=== PATIENT | female | born 1980 | race Hispanic/Latino ===

== ENCOUNTER 2021-02-28 11:42 | Emergency (ER) | payer BC ==
--- OUTSIDE RECORDS SUMMARY | 2021-02-28 11:46 | XMS REPORT | Continuity of Care Document ---
:1980 Author Organization [facility] t Address [address] [place] [address] Care Team Providers Name Role Phone Doctor Unassigned, Name Attending Clinician Unavailable Julianna BRONSON Attending Clinician Problems Condition Condition Condition Status Onset Resolution Last Treating Co mments Source Name Details Category Date Date Treatment Clinician Date Lower Lower Diagnosis [facility] Maame Maame Problem [facility] Pelvic Pelvic Diagnosis [facility] History of History of Problem [facility] Allergies, Adverse Reactions, Alerts This patient has no known allergies or adverse reactions. Medications Ordered Filled Start Stop Current Ordering Indication Dosage Frequency Signature Comments Components Source Medication Medication Date Date Medication? Clinician (SIG) Name Name Advair HFA Advair HFA Yes Toney [address] [facility] Diflucan Diflucan Yes Toney [address] [facility] ProAir HFA ProAir HFA Yes Toney [address] [facility] Ambien Ambien Yes Toney not [facility] Prednisone Prednisone Yes Toney [address] [facility] MiraLax MiraLax Yes Toney not [facility] Procedures This patient has no known procedures. Encounters Start End Encounter Admission Attending Care Care Encounter Source Date/Time Date/Time Type Type Clinicians Facility Department ID 2019-06-07 Inpatient [facility] [address] [facility] H 08:34:00 2021-01-28 2021-01-28 Orders Doctor CORRIGAN [id number] 00:00:00 00:00:00 Only Unassigned, RADHA [id number] [place] [facility] [id number] 2020-11-07 2020-11-07 Orders Doctor CORRIGAN [id number] 00:00:00 00:00:00 Only Unassigned, RADHA [id number] [place] [facility] [id number] 2020-04-18 2020-04-18 Orders Doctor CORRIGAN [id number] 00:00:00 00:00:00 Only Unassigned, RADHA [id number] [place] [facility] [id number] 2020-04-03 2020-04-03 Telephone Julianna CTNETO [id number] 00:00:00 00:00:00 Adam Jimenez [id number] [place] [id number] Xim[place] [id number] [facility] 2018-09-22 2018-09-22 [facility] [id number] [facility] 10:30:00 10:30:00 t [facility] 2018-08-25 2018-08-25 [facility] [id number] 11:00:00 11:00:00 t [facility] Results Test Description Test Time Test Comments Results Result Sourc e Comments SCR MAMM 2019-01-04 - SCR MAMM BILATERAL BILATERAL SISSY 11:01:58 SISSY CAD CAD DIGITAL DIGITALBILATERAL FIRST EVER DIGITAL SCREENING MAMMOGRAM 3D/2D WITH CAD: 12/30/2018CLINICAL: Asymptomatic. Digital breast tomosynthesis was performed in addition to routine CC and MLO views. Current mammographic images were evaluated by either a [employer] Person M-Vu or a [employer] ImageChecker CAD (computer aided detection system). No prior exams were available for comparison. The tissue of both breasts is heterogeneously dense. This may lower the sensitivity of mammography. There is a focal asymmetry in the right breast at 12 o'clock, posterior depth. No other significant masses, calcifications, or other findings are seen in either breast. IMPRESSION: INCOMPLETE ASSESSMENT: ADDITIONAL IMAGING EVALUATION RECOMMENDEDThe focal asymmetry in the right breast most likely is fibroglandular tissue and is indeterminate. Spot compression view as well as a possible ultrasound are recommended. Larry Smith M.D. et/:01/04/2019 11:01:58 Attending Technologist: Angelina Renner MM, [facility] MammographyImaging Technologist: Livier Soria MM, [facility] Mammographyletter sent: Additional Imaging Mammogram BI-RADS: 0 Indeterminate
--- NOTE | 2021-02-28 13:28 | RAD REPORT ---
EXAM DESCRIPTION: RAD - Chest Pa And Lat (2 Views) - 02/28/2021 1:23 pm CLINICAL HISTORY: Chest pain;Dyspnea COMPARISON: Abdomen 1 View (KUB) dated 10/06/2017; Chest Single View dated 08/04/2016; Chest Single Vie w dated 07/25/2016; CHEST PA AND LAT 2 VIEW dated 07/21/2012 FINDINGS: Mild scattered air space opacities within the mid lungs and bases. The heart size is withi n normal limits.No acute osseous abnormality. No significant pleural effusions or pneumothorax. IMPRESSION: Mild mid lung and basilar opacities could reflect pneumonia. No edema identified.
[2021-02-28] MEDS ORDERED: NA CHLORIDE 0.9% 2,000 ML ONE (14:23)
[2021-02-28 14:41] LABS: Absolute Lymphocytes (CBC) 0.6 K/uL (0.7-4.9); Basophils % 0.1 % (0-1.3); Hematocrit 39.1 % (36.0-45.0); Lymphocytes % 8.4 % (15.3-44.8); MPV 8.1 fL (7.6-11.3); RBC Red Blood Cell Count 4.51 M/uL (3.86-4.86)
[2021-02-28 14:43] LABS: Protime INR 1.03
[2021-02-28 15:06] LABS: ALT/SGPT 99 U/L (12-78); AST/SGOT 66 U/L (15-37); Alkaline Phosphatase 119 U/L (45-117); BUN Blood Urea Nitrogen 14 mg/dL (7-18); Bicarbonate 23 mmol/L (21-32); Glucose Level 134 mg/dL (74-106); Potassium 3.9 mmol/L (3.5-5.1); Sodium Level 137 mmol/L (136-145)
[2021-02-28 15:07] LABS: Albumin 3.5 g/dL (3.4-5.0); Bilirubin Direct < 0.1 mg/dL (0-0.2); Bilirubin Total 0.3 mg/dL (0.2-1.0); Magnesium 2.1 mg/dL (1.8-2.4); NT PRO-BNP 86 pg/mL (<125); Protein, Total 7.7 g/dL (6.4-8.2); Troponin (Emerg Dept Use Only) < 0.02 ng/mL (0.0-0.045)
[2021-02-28] MEDS ORDERED: AZITHROMYCIN 250 MG TAB ONE (15:14)
[2021-02-28] MEDS ORDERED: ENOXAPARIN 80 MG/0.8 ML SQ ONE (15:14)
[2021-02-28] MEDS ORDERED: FAMOTIDINE 20 MG/2 ML VIAL IV ONE (15:14)
[2021-02-28] MEDS ORDERED: CEFTRIAXONE/SWI 1gm 1 GM/10 ML SYR ONE (15:15)
--- NOTE | 2021-02-28 15:41 | RAD REPORT ---
EXAM DESCRIPTION: CT - Chest For Pe Angio - 02/28/2021 3:23 pm CLINICAL HISTORY: Dyspnea;Cough COMPARISON: No comparisons FINDINGS: Chest Wall: No suspicious thyroid nodules or pathologic lymphadenopathy. Lungs: Moderate patchy ground-glass opacities in the lungs bilaterally. Pleura: No significant effusions or pneumothorax. Mediastinum/huong: No pathologic lymphadenopathy. Pulmonary arteries/Aorta: No filling defect identified. No aortic aneurysm. Heart: No significant pericardial effusion. Normal heart size. Upper abdomen: No acute abnormality. Small hiatal hernia. Partial gastrectomy. Bones: No acute abnormality. IMPRESSION: Negative for pulmonary embolism. Findings consistent with moderate multifocal pneumonia, including Covid-19.
--- NOTE | 2021-02-28 16:08 | ER ---
Nurse's Notes [facility] Name: Marija Rojas Age: 41 yrs Sex: Female : 1980 Arrival Date: 02/28/2021 Time: 12:00 Bed 19 Private MD: Diagnosis: Dyspnea;Mild intermittent asthma with (acute) exacerbation;Coronavirus infection, unspecified;Pneumonia due to SARS-associated coronavirus Presentation: 02/28 12:03 Chief complaint: Patient states: dyspnea, chest pain Hx asthma, fever Tmax 101, body sv aches x 9 days. COVID + 02/20/21. Coronavirus screen: Client denies travel out of the [place] in the last 14 days. At this time, the client does not indicate any symptoms associated with coronavirus-19. Ebola Screen: No symptoms or risks identified at this time. Risk Assessment: Do you want to hurt yourself or someone else? Patient reports no desire to harm self or others. Onset of symptoms was February 20, 2021. 12:03 Method Of Arrival: Ambulatory sv 12:05 Initial Sepsis Screen: Does the patient meet any 2 criteria? RR > 20 per min. HR > 90 sv bpm. Yes Does the patient have a suspected source of infection? Yes: Other: covid. 12:05 Acuity: MARTIN 3 sv 21:27 Note Pt was a/o vss in no acute distress at time of discharge. IV discontinued with tip sh9 intact. Pt ambulated to exit. Triage Assessment: 12:07 General: Appears in no apparent distress. uncomfortable, Behavior is calm, cooperative, sv appropriate for age. Pain: Complains of pain in chest. Neuro: Level of Consciousness is awake, alert, obeys commands, Gait is steady. Respiratory: Reports shortness of breath Respiratory effort is even, unlabored, Respiratory pattern is tachypnea Onset: The symptoms/episode began/occurred 9 days ago, the patient has mild shortness of breath. Historical: - Allergies: 12:05 adhesive tape; sv - Home Meds: 14:24 Ambien 10 mg Oral tab 1 tab once daily [Active]; proair inhaler [Active]; Miralax 17 ap3 gram/dose Oral powd once daily [Active]; Singulair Oral [Active]; - PMHx: 12:05 Asthma; sv - Immunization history:: Client reports having NOT received the Covid vaccine. - Social history:: Smoking status: Patient denies any tobacco usage or history of. Screenin:23 Abuse screen: Denies threats or abuse. Nutritional screening: No deficits noted. ap3 Tuberculosis screening: No symptoms or risk factors identified. Fall Risk None identified. Assessment: 12:06 Reassessment: Received VO for a CXR from Dr Moe. sv 14:22 General: Appears in no apparent distress. comfortable, Behavior is calm, cooperative, ap3 appropriate for age. General: Reports chills for fever for feeling ill for fatigue for. Pain: Complains of pain in head. Neuro: Level of Consciousness is awake, alert, obeys commands, Oriented to person, place, time, situation, Appropriate for age Shoe Sticks Repairer are equal bilaterally Moves all extremities. Gait is steady, Speech is normal. Cardiovascular: Rhythm is regular. Respiratory: Airway is patent Respiratory effort is even, unlabored, Respiratory pattern is regular, symmetrical, Breath sounds are clear in left posterior upper lobe and right posterior upper lobe Breath sounds are diminished in left posterior lower lobe, right posterior middle lobe and right posterior lower lobe. GI: No signs and/or symptoms were reported involving the gastrointestinal system. : No signs and/or symptoms were reported regarding the genitourinary system. EENT: No signs and/or symptoms were reported regarding the EENT system. 15:35 Reassessment: Patient and/or family updated on plan of care and expected duration. Pain ap3 level reassessed. Patient is alert, oriented x 3, equal unlabored respirations, skin warm/dry/pink. Vital Signs: 12:05 BP 116 / 82; Pulse 101; Resp 22; Temp 98.4(O); Pulse Ox 96% ; Weight 85.28 kg; Height 5 sv ft. 3 in. (160.02 cm); 14:25 BP 93 / 71; Pulse 74; Resp 12; Pulse Ox 99% on R/A; ap3 14:41 BP 101 / 81; Pulse 71; Resp 14; Pulse Ox 100% on R/A; ap3 15:35 BP 107 / 72; Pulse 71; Resp 14; Pulse Ox 100% on R/A; ap3 21:26 BP 123 / 82; Pulse 72; Resp 18; Pulse Ox 100% on R/A; sh9 12:05 Body Mass Index 33.30 (85.28 kg, 160.02 cm) sv ED Course: 12:00 Patient arrived in ED. am2 12:03 Arm band placed on. sv 12:06 Triage completed. sv 13:22 Chest Pa And Lat (2 Views) XRAY In Process Unspecified. EDMS 13:44 Sherri Leonard, PRIYA is Primary Nurse. ap3 13:46 Abraham Moe MD is Attending Physician. [facility] 14:15 Inserted saline lock: 20 gauge in right antecubital area, using aseptic technique. ap3 Blood collected. 14:23 Patient has correct armband on for positive identification. Bed in low position. Call ap3 light in reach. Side rails up X 1. vehicle monitor technician on. Pulse ox on. NIBP on. Door closed. Noise minimized. Warm blanket given. Pillow given. 15:24 CT Chest For PE Angio In Process Unspecified. EDMS 16:04 Ryan Rich is Hospitalizing Provider. [facility] 16:31 Admitting physician to see patient. ap3 21:31 IV discontinued, intact, bleeding controlled, No redness/swelling at site. Pressure sh9 dressing applied. 21:32 No provider procedures requiring assistance completed. sh9 Administered Medications: 14:21 Drug: NS 0.9% 500 ml Route: IV; Rate: bolus; Site: right antecubital; ap3 16:14 Follow up: Response: No adverse reaction; IV Status: Completed infusion; IV Intake: ap3 1000ml 14:21 Drug: NS 0.9% 1000 ml Route: IV; Rate: 125 ml/hr; Site: right antecubital; ap3 18:33 Follow up: Response: No adverse reaction; IV Status: Completed infusion; IV Intake: ap3 1000ml 15:01 Drug: Pepcid (famotidine) 20 mg Route: IVP; Site: right antecubital; ap3 16:13 Follow up: Response: No adverse reaction ap3 15:01 Not Given (pt already took this morningg): Zithromax (azithromycin) 500 mg PO once ap3 15:01 Drug: Rocephin (cefTRIAXone) 1 grams Route: IV; Rate: per protocol; Site: right ap3 antecubital; 16:13 Follow up: Response: No adverse reaction ap3 16:32 Follow up: Response: No adverse reaction; IV Status: Completed infusion ap3 15:03 Drug: Lovenox (enoxaparin) 1 mg/kg Route: Sub-Q; Site: abdomen; ap3 16:13 Follow up: Response: No adverse reaction ap3 16:12 Drug: Aspirin Chewable Tablet 162 mg Route: PO; ap3 18:33 Follow up: Response: No adverse reaction ap3 16:12 Drug: SOLU-Medrol (methylPrednisoLONE) 125 mg Route: IVP; Site: right antecubital; ap3 18:33 Follow up: Response: No adverse reaction ap3 16:13 Not Given (patient took this morningn): Zithromax (azithromycin) 500 mg IVPB once over ap3 1 hrs; mix in 250 mL NS Intake: 16:14 IV: 1000ml; Total: 1000ml. ap3 18:33 IV: 1000ml; Total: 2000ml. ap3 Outcome: 16:07 Decision to Hospitalize by Provider. [facility] 21:31 Discharged to home sh9 21:31 Condition: stable 21:31 Discharge instructions given to patient, Prescriptions given X 2. 21:32 Patient left the ED. sh9 Signatures: Dispatcher [employer] EDMS Ashleigh Tran RN RN Abraham Crane MD MD cha Moreno, Amanda am2 Sherri Leonard RN RN ap3 Irish Rod RN RN 9 Corrections: (The following items were deleted from the chart) 12:06 12:05 Temp 98.4F Oral; sv sv 12:07 12:05 Acuity: MARTIN 4 sv sv 15:03 15:01 Lovenox (enoxaparin) 1 mg/kg Sub-Q in abdomen ap3 ap3
--- NOTE | 2021-02-28 16:08 | EDPHYS ---
Physician Documentation [facility] [place] [place] Name: Marija Rojas Age: 41 yrs Sex: Female : 1980 Arrival Date: 02/28/2021 Time: 12:00 Bed 19 Private MD: ED Physician Abraham Moe HPI: 02/28 14:43 This 41 yrs old Female presents to ER via Ambulatory with complaints of vinod Breathing Difficulty, Fever, covid+. 14:43 The patient has shortness of breath at rest, with light activity. Onset: The vinod symptoms/episode began/occurred 10 day(s) ago. Duration: The symptoms are continuous, and are steadily getting worse. The patient's shortness of breath is aggravated by coughing. Associated signs and symptoms: Pertinent positives: chest pain, non-productive cough. Severity of symptoms: At their worst the symptoms were mild moderate in the emergency department the symptoms are unchanged. The patient has not experienced similar symptoms in the past. Historical: - Allergies: 12:05 adhesive tape; sv - Home Meds: 14:24 Ambien 10 mg Oral tab 1 tab once daily [Active]; proair inhaler [Active]; Miralax 17 ap3 gram/dose Oral powd once daily [Active]; Singulair Oral [Active]; - PMHx: 12:05 Asthma; sv - Immunization history:: Client reports having NOT received the Covid vaccine. - Social history:: Smoking status: Patient denies any tobacco usage or history of. ROS: 14:46 Constitutional: Negative for fever, chills, and weight loss, Eyes: Negative for injury, vinod pain, redness, and discharge, ENT: Negative for injury, pain, and discharge, Neck: Negative for injury, pain, and swelling, Abdomen/GI: Negative for abdominal pain, nausea, vomiting, diarrhea, and constipation, Back: Negative for injury and pain, : Negative for injury, bleeding, discharge, and swelling, MS/Extremity: Negative for injury and deformity, Skin: Negative for injury, rash, and discoloration, Neuro: Negative for headache, weakness, numbness, tingling, and seizure, Psych: Negative for depression, anxiety, suicide ideation, homicidal ideation, and hallucinations, Allergy/Immunology: Negative for hives, rash, and allergies, Endocrine: Negative for neck swelling, polydipsia, polyuria, polyphagia, and marked weight changes, Hematologic/Lymphatic: Negative for swollen nodes, abnormal bleeding, and unusual bruising. 14:46 Cardiovascular: Positive for chest pain, with movement. 14:46 Respiratory: Positive for cough, shortness of breath, at rest. Exam: 14:46 Constitutional: This is a well developed, well nourished patient who is awake, alert, vinod and in no acute distress. Head/Face: Normocephalic, atraumatic. Eyes: Pupils equal round and reactive to light, extra-ocular motions intact. Lids and lashes normal. Conjunctiva and sclera are non-icteric and not injected. Cornea within normal limits. Periorbital areas with no swelling, redness, or edema. ENT: Nares patent. No nasal discharge, no septal abnormalities noted. Tympanic membranes are normal and external auditory canals are clear. Oropharynx with no redness, swelling, or masses, exudates, or evidence of obstruction, uvula midline. Mucous membranes moist. Neck: Trachea midline, no thyromegaly or masses palpated, and no cervical lymphadenopathy. Supple, full range of motion without nuchal rigidity, or vertebral point tenderness. No Meningismus. Chest/axilla: Normal chest wall appearance and motion. Nontender with no deformity. No lesions are appreciated. Cardiovascular: Regular rate and rhythm with a normal S1 and S2. No gallops, murmurs, or rubs. Normal PMI, no JVD. No pulse deficits. Abdomen/GI: Soft, non-tender, with normal bowel sounds. No distension or tympany. No guarding or rebound. No evidence of tenderness throughout. Back: No spinal tenderness. No costovertebral tenderness. Full range of motion. Skin: Warm, dry with normal turgor. Normal color with no rashes, no lesions, and no evidence of cellulitis. MS/ Extremity: Pulses equal, no cyanosis. Neurovascular intact. Full, normal range of motion. Neuro: Awake and alert, GCS 15, oriented to person, place, time, and situation. Cranial nerves II-XII grossly intact. Motor strength 5/5 in all extremities. Sensory grossly intact. Cerebellar exam normal. Normal gait. Psych: Awake, alert, with orientation to person, place and time. Behavior, mood, and affect are within normal limits. 14:46 Respiratory: the patient does not display signs of respiratory distress, Respirations: normal, Breath sounds: rales, that are mild, are located in both bases, are heard in the left posterior upper lobe, right posterior upper lobe, left posterior lower lobe, right posterior middle lobe and right posterior lower lobe, decreased breath sounds, rhonchi, that are mild. 16:07 ECG was reviewed by the Attending Physician. [facility] Vital Signs: 12:05 BP 116 / 82; Pulse 101; Resp 22; Temp 98.4(O); Pulse Ox 96% ; Weight 85.28 kg; Height 5 sv ft. 3 in. (160.02 cm); 14:25 BP 93 / 71; Pulse 74; Resp 12; Pulse Ox 99% on R/A; ap3 14:41 BP 101 / 81; Pulse 71; Resp 14; Pulse Ox 100% on R/A; ap3 15:35 BP 107 / 72; Pulse 71; Resp 14; Pulse Ox 100% on R/A; ap3 21:26 BP 123 / 82; Pulse 72; Resp 18; Pulse Ox 100% on R/A; sh9 12:05 Body Mass Index 33.30 (85.28 kg, 160.02 cm) sv MDM: 13:46 Patient medically screened. vinod 14:46 Antibiotic administration: Rocephin and Zithromax given. HEART Score:. The patient was vinod given aspirin in the Emergency Department. The patient's Wells Deep Vein Thrombosis Score was calculated as follows: Total Score: 0. This patient was found to be at low risk for a deep vein thrombosis by using the Well's assessment criteria Total Score: 0-2 Pts- Low Risk. The patient's pulmonary embolism risk score was calculated as follows: Total Score: 0-2 points. This patient was found to be at low risk for a pulmonary embolism by using the Well's assessment criteria Total Score: 0-2 points. This patient was found to be at low risk for a pulmonary embolism by using the Well's assessment criteria. ZEE Risk Score: TOTAL SCORE = 0. Immunization status:. Data reviewed: vital signs, nurses notes, lab test result(s), EKG, radiologic studies, plain films. Data interpreted: child monitor: rate is 71 beats/min, rhythm is regular, Pulse oximetry: on room air. Test interpretation: by ED physician or midlevel provider: ECG, plain radiologic studies. 02/28 13:47 Order name: Basic Metabolic Panel; Complete Time: 15:59 vinod 02/28 13:47 Order name: CBC with Diff [facility] 02/28 13:47 Order name: LFT's; Complete Time: 15:59 vinod 02/28 13:47 Order name: Magnesium; Complete Time: 15:59 vinod 02/28 13:47 Order name: NT PRO-BNP; Complete Time: 15:59 vinod 02/28 13:47 Order name: PT-INR; Complete Time: 15:59 vinod 02/28 12:06 Order name: Chest Pa And Lat (2 Views) XRAY; Complete Time: 15:59 sv 02/28 13:47 Order name: Troponin (emerg Dept Use Only); Complete Time: 15:59 vinod 02/28 13:47 Order name: D-Dimer; Complete Time: 15:59 vinod 02/28 14:43 Order name: Blood Culture Adult (2) vinod 02/28 14:43 Order name: CT Chest For PE Angio; Complete Time: 15:59 [facility] 02/28 18:46 Order name: CBC Smear Scan EDMS 02/28 13:47 Order name: EKG; Complete Time: 13:48 [facility] 02/28 13:47 Order name: Cardiac monitoring; Complete Time: 14:21 [facility] 02/28 13:47 Order name: EKG - Nurse/Tech; Complete Time: 16:00 [facility] 02/28 13:47 Order name: IV Saline Lock; Complete Time: 14:21 [facility] 02/28 13:47 Order name: Labs collected and sent; Complete Time: 14:21 [facility] 02/28 13:47 Order name: O2 Per Protocol; Complete Time: 14:21 [facility] 02/28 13:47 Order name: O2 Sat Monitoring; Complete Time: 14:21 [facility] EC:07 Rate is 70 beats/min. Rhythm is regular. QRS [place] is Normal. NE interval is normal. QRS vinod interval is normal. QT interval is prolonged at 446 msec. No Q waves. T waves are Normal. No ST changes noted. Clinical impression: NSR w/ Non-specific ST/T Changes and No evidence of ischemia. Interpreted by me. Reviewed by me. Administered Medications: 14:21 Drug: NS 0.9% 500 ml Route: IV; Rate: bolus; Site: right antecubital; ap3 16:14 Follow up: Response: No adverse reaction; IV Status: Completed infusion; IV Intake: ap3 1000ml 14:21 Drug: NS 0.9% 1000 ml Route: IV; Rate: 125 ml/hr; Site: right antecubital; ap3 18:33 Follow up: Response: No adverse reaction; IV Status: Completed infusion; IV Intake: ap3 1000ml 15:01 Drug: Pepcid (famotidine) 20 mg Route: IVP; Site: right antecubital; ap3 16:13 Follow up: Response: No adverse reaction ap3 15:01 Not Given (pt already took this morningg): Zithromax (azithromycin) 500 mg PO once ap3 15:01 Drug: Rocephin (cefTRIAXone) 1 grams Route: IV; Rate: per protocol; Site: right ap3 antecubital; 16:13 Follow up: Response: No adverse reaction ap3 16:32 Follow up: Response: No adverse reaction; IV Status: Completed infusion ap3 15:03 Drug: Lovenox (enoxaparin) 1 mg/kg Route: Sub-Q; Site: abdomen; ap3 16:13 Follow up: Response: No adverse reaction ap3 16:12 Drug: Aspirin Chewable Tablet 162 mg Route: PO; ap3 18:33 Follow up: Response: No adverse reaction ap3 16:12 Drug: SOLU-Medrol (methylPrednisoLONE) 125 mg Route: IVP; Site: right antecubital; ap3 18:33 Follow up: Response: No adverse reaction ap3 16:13 Not Given (patient took this morningn): Zithromax (azithromycin) 500 mg IVPB once over ap3 1 hrs; mix in 250 mL NS Disposition Summary: 02/28/21 16:07 Hospitalization Ordered Hospitalization Status: Inpatient Admission vinod Provider: Ryan Rich cha Condition: Fair vinod Problem: new vinod Symptoms: have improved vinod Bed/Room Type: Standard vinod Location: [facility] ER HOLD(02/28/21 21:05) bb Room Assignment: ERHOLD-(02/28/21 21:05) bb Diagnosis - Dyspnea vinod - Mild intermittent asthma with (acute) exacerbation vinod - Coronavirus infection, unspecified vinod - Pneumonia due to SARS-associated coronavirus vinod Forms: - Medication Reconciliation Form vinod - SBAR form vinod Signatures: Dispatcher [employer] EDAshleigh Delgadillo RN Abraham Jerome MD MD cha Ballard, Brenda, RN RN bb Sherri Leonard RN RN ap3 Corrections: (The following items were deleted from the chart) 16: Telemetry/MedSurg (Inpatient) vinod mahoney 16: vinod mahoney
[2021-02-28] MEDS ORDERED: ASPIRIN EC 81 MG TAB PO ONE (16:33)
[2021-02-28] MEDS ORDERED: METHYLPREDNISOLONE 125 MG INJ ONE (16:33)
[2021-02-28 18:46] LABS: Blood Morphology Comment NOT SEEN (NOT SEEN); Platelet Estimate ADEQ; White Blood Cell Scan OK (OK)
--- NOTE | 2021-02-28 19:10 | P.SSS ---
Patient History Date of Service: 02/28/21 Reason for admission: COVID-19 pneumonia History of Present Illness: Patient is a 41-year-old female came to the hospital with shortness of breath. She has been dealing with a COVID-19 infection since her [birth year] on [birth year]. She has been short of breath over the last few days. She has a history of asthma. Her clinical symptoms are fairly stable. She satting 100% on room air. Her chest x-ray showed mild interstitial infiltrates. CT scan was negative for pulmonary embolism. Did show the mild infiltrates. Her oxygen saturations are 100% on room air. She had some diarrhea the last couple of days but she has not had any diarrhea today. She did not eat much since last night. 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 She got Solu-Medrol 125 mg IV push. Clinically she is stable and safe for discharge. I have advised her to take and anti coagulation which all prescribed at discharge for the next 2 weeks. Allergies adhesive tape Allergy (Verified 04/27/17 08:16) Hives Home Medications: Albuterol Sulfate [Proair Hfa] 8.5 gm IH PRN PRN 04/27/17 Diclofenac Na [Voltaren D.r*] 50 mg PO TID PRN #20 tab 04/27/17 Fluticasone/Salmeterol [Advair 250-50 Diskus] 1 each IH DAILY 04/27/17 Iron Carb,Gl/FA/B12/C/Docusate [Ferralet 90 Tablet] 1 each PO DAILY #90 tablet 04/27/17 Montelukast [Singulair] 10 mg PO DAILY 04/27/17 Norgestimate-Ethinyl Estradiol [Estarylla] 1 each PO DAILY 04/27/17 Zolpidem Tartrate [Ambien] 10 mg PO BEDTIME 04/27/17 - Past Medical/Surgical History -: Asthma -: Anxiety -: section x3 (and tubal ligation) -: Bariatric surgery 2013 - Family History Father Notes: Noncontributory - Social History Smoking Status: Never smoker Alcohol use: No CD- Drugs: No Caffeine use: Yes Review of Systems 10-point ROS is otherwise unremarkable Physical Examination - Vital Signs Temperature: 98 F Blood Pressure: 130/70 Pulse: 80 Respirations: 18 Pulse Ox (%): 96 - Physical Exam General: Alert, In no apparent distress, Oriented x3 HEENT: Atraumatic, PERRLA, Mucous membr. moist/pink, EOMI, Sclerae nonicteric Neck: Supple, 2+ carotid pulse no bruit, No LAD, Without JVD or thyroid abnormality Respiratory: Clear to auscultation bilaterally, Normal air movement Cardiovascular: Regular rate/rhythm, Normal S1 S2, No murmurs Gastrointestinal: Normal bowel sounds, Soft and benign, Non-distended, No tenderness Musculoskeletal: No clubbing, No swelling, No tenderness Integumentary: No rashes Neurological: Normal gait, Normal speech, Normal strength at 5/5 x4 extr, Normal tone, Sensation intact, Cranial nerves 3-12 intact, Normal affect Lymphatics: No axilla or inguinal lymphadenopathy - Studies Laboratory Data (last 24 hrs) 02/28/21 14:11: PT 11.8, INR 1.03 02/28/21 14:11: WBC 7.40, Hgb 13.0, Hct 39.1, Plt Count 245 02/28/21 14:11: Sodium 137, Potassium 3.9, BUN 14, Creatinine 0.59, Glucose 134 H, Magnesium 2.1, Total Bilirubin 0.3, AST 66 H, ALT 99 H, Alkaline Phosphatase 119 H - Diagnosis (Problem(s)) (1) Pneumonia due to COVID-19 virus Current Visit: Yes Status: Acute Treatment Summary: Patient is clinically doing well and is stable for discharge. She does not need home oxygen. Will discharge her on steroids. She does have all her asthma medications including nebulizers and inhaler therapy which I have encouraged her to use. I will send her home with item tapering dose of prednisone as well as cough medication and anti coagulation. - Disposition Discharge Date: 02/28/21 Disposition: ROUTINE DISCHARGE Followup: OOTOOT [Primary Care Provider] - Prvt As Needed Diet: AHA Activity: Fall precautions Critical Care: No Time Spent Managing Pts Care (In Minutes): 45
[2021-02-28 19:11] VITALS: TEMP 98
[2021-02-28 21:58] VITALS: O2SAT 100
[2021-02-28 22:02] VITALS: BP 123/82
== END 2021-02-28 21:29 | disposition home or self-care (01) ==
LOC: ER 11:42 → ERHOLD 20:57 → UNDOADMIN 20:57 → UNDODISIN 21:29 → ER 21:29
DX: U07.1 COVID-19 (principal); J12.82 Pneumonia due to coronavirus disease 2019; J45.21 Mild intermittent asthma with (acute) exacerbation; F41.9 Anxiety disorder, unspecified; Z91.048 Other nonmedicinal substance allergy status
CPT/HCPCS: 96365; 96361; 93005; 87040 ×2; 85025; 80048; 36415; 83735; 85610; 85379; 80076; 84484; 83880; 71275; 71046; 96375; 96372; 99284; 96366; Q9967; J0696; J7030; J2930

== ENCOUNTER 2021-10-10 06:36 | Day surgery (SDC) | payer BC, OTHER ==
[2021-10-08 10:40] LABS: Absolute Lymphocytes (CBC) 3.4 K/uL (0.7-4.9); Hematocrit 40.5 % (36.0-45.0); Lymphocytes % 33.8 % (15.3-44.8); MPV 7.3 fL (7.6-11.3); RBC Red Blood Cell Count 4.63 M/uL (3.86-4.86)
[2021-10-08 10:47] LABS: Urine Appearance CLEAR (Clear); Urine Bilirubin NEGATIVE (Negative); Urine Blood NEGATIVE (Negative); Urine Color YELLOW (Yellow); Urine Glucose NEGATIVE (Negative); Urine Microscopic Reflex NO UMIC; Urine Protein NEGATIVE (Negative); Urine Urobilinogen 0.2 mg/dL (0.2-1.0); Urine pH 7.5 (5.0-7.0)
[2021-10-10] MEDS ORDERED: SCOPOLAMINE HYDROBROMIDE PATCH TD ONE (06:51)
[2021-10-10] MEDS ORDERED: Ringers Lactate 1,000 ML IV ONE ×2 (06:51→07:20)
[2021-10-10] MEDS ORDERED: LIDOCAINE 2% MPF 5 ML VIAL ONE (07:04)
[2021-10-10] MEDS ORDERED: KETAMINE HCL 500 MG/5 ML VIAL ONE (07:04)
[2021-10-10] MEDS ORDERED: propofoL 200 MG/20 ML VIAL IV ONE (07:04)
[2021-10-10] MEDS ORDERED: dexAMETHasone 10 MG/ML VIAL ONE (07:04)
[2021-10-10] MEDS ORDERED: ROCURONIUM 50 MG/5 ML VIAL IV ONE (07:04)
[2021-10-10] MEDS ORDERED: FENTANYL CITR 250 MCG/5 ML ONE (07:05)
[2021-10-10] MEDS ORDERED: ONDANSETRON 4 MG/2 ML VIAL ONE ×2 (07:05→12:37)
[2021-10-10] MEDS ORDERED: NS 0.9% VIAL 10 ML ONE (07:05)
[2021-10-10] MEDS ORDERED: MIDAZOLAM HCL 2 MG/2 ML INJ ONE (07:05)
[2021-10-10] MEDS ORDERED: CEFAZOLIN SODIUM 1 GM/VIAL ONE (07:08)
[2021-10-10] MEDS ORDERED: NA CHLORIDE 0.9% 50 ML ONE (07:08)
[2021-10-10] MEDS ORDERED: ACETAMINOPHEN 500 MG TAB ONE (07:18)
[2021-10-10] MEDS ORDERED: CELECOXIB 100 MG CAPSULE ONE (07:18)
[2021-10-10] MEDS ORDERED: NA CHLORIDE 0.9% 1,000 ML ONE (07:19)
[2021-10-10] MEDS ORDERED: BUPIVACAINE 0.25% PF 10 ML VIAL ONE (07:19)
[2021-10-10] MEDS ORDERED: Phenylephrine HCl 10 MG/ML 1 ML VIAL ONE (08:00)
[2021-10-10] MEDS: CEFAZOLIN/SWI 2gm 2 GM/20 ML SYR ONE ×2 (08:10→09:34)
[2021-10-10] MEDS ORDERED: VECURONIUM 10 MG/VIAL IV ONE (08:38)
[2021-10-10] MEDS ORDERED: IBUPROFEN 200 MG TAB PO PRN (10:29)
[2021-10-10] MEDS ORDERED: HYDROCODONE/APAP 5/325 MG TAB PO PRN (10:29)
[2021-10-10] MEDS ORDERED: PROMETHAZINE INJ 25 MG/ML AMP IV PRN (10:29)
[2021-10-10] MEDS ORDERED: MEPERIDINE HCL 25 MG/ML SYR IM PRN (10:29)
--- NOTE | 2021-10-10 10:32 | P.BOP ---
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
[2021-10-10] MEDS: HYDROMORPHONE HCL 1 MG/ML INJ ONE ×6 (10:49→11:16)
[2021-10-10] MEDS ORDERED: KETOROLAC 30 MG/ML INJ ONE (11:21)
[2021-10-10] MEDS ORDERED: HYDROCODONE/APAP 5/325 MG TAB ONE (12:55)
[2021-10-10 13:57] VITALS: BP 131/82; TEMP 97.3; O2SAT 96
--- NOTE | 2021-10-16 12:38 | OP ---
Date of Procedure: 10/10/2021 Surgeon: Arabella Mcfadden MD Quarter Supervisor: Shikha Real. Preoperative Diagnosis: Pelvic pain, deep dyspareunia, x3. Postoperative Diagnosis: Pelvic pain, deep dyspareunia, x3. Endometriosis and adhesions of the omentum and the bladder. Procedures Performed: Total laparoscopic hysterectomy and bilateral salpingectomy, endometriosis exc ision, lysis of adhesion. Anesthesia: General endotracheal. Ebl: 50. Urine Output: 100. Fluids: 1500. Specimens: Uterus and tubes. Endometriosis included with the ligament and the peritoneum of the romain rine specimen. Complications: No complications. Drains: No drains. Condition: The patient's condition is stable. Findings: Endometriosis along the tubes, right mesosalpinx, omental adhesions to the anterior abdomi nal wall. Indications: The patient is a 41-year-old female who presented with pelvic pain and dyspareunia. Sh salinas has history of three sections. Through the transvaginal ultrasound, no pelvic masses were noted and she was evaluated. In her endometrium, no evidence of any atypia or malignancy. We discu ssed all different options of treatment and she was consented for surgical treatment with preservatio n of ovaries, removal of endometriosis if found and possible resolution of her pain with the hysterec alise. There is also a chance of 1/3rd of the time that the pain either would not change or a very sm all percentage of time that it could get worse. The patient was informed all about this and consente d and taken to the OR. 2 g of Ancef was given. SCDs were placed and she was taken back to OR, place d in a supine fashion on the operating table. After general anesthesia was given, placed in a dorsal lithotomy position. A pelvic exam was performed. Then abdomen, vulva, vagina, and perineum prepped and draped in a steri le fashion. After a time-out was done, the procedure was started. Speculum was placed to expose the cervix. Anterior lip grasped with 2 Allis clamps. A large VCare i ntroduced into the uterus without any problems. Barrow placed to drain the bladder and attached for r etrograde filling. This area was draped. 1 cm infraumbilical incision was made with a scalpel using the open laparoscopy technique. Fascia wa s incised, tagged with 0 Vicryl sutures and peritoneum entered bluntly. The S retractors were placed . Marcella introduced. After adequate insufflation, site of entry was checked, unremarkable. The pat ient was placed in Trendelenburg. The adhesions of the omentum all the way to the bladder were visua lized. A 5 mm left lower quadrant port was placed and then using the LigaSure, omental adhesions wer e taken down systematically with sharp dissection as well as vessel sealing with the LigaSure. After clearing the omental adhesions all the way down to the level of the bladder, the bladder cleare d down all the way to the level of the suprapubic area. Then, there was good visualization. Then, s uprapubic and 5 right lower quadrant ports were placed under direct vision. The bowel was tacked up with the epiploicae in the left upper quadrant using a Shree-Malachi needle and a 3-0 Monocryl sutu re. Endometriosis of the right mesosalpinx was well visualized. There was a wide excision of this endome triosis and the fimbriated end was taken down from the ovary and then the rest of the tube was dissec demetrice and removed and handed out for permanent pathology. Utero-ovarian ligament, round ligament were all taken down. Peritoneum anteriorly was connected with the bladder flap and then from the left debbie e, the tube was removed. Utero-ovarian ligament and the round ligament were taken down and the bladd er flap connected anteriorly and the vessels were skeletonized on both sides right and lef t then circumferential colpotomy was performed with a monopolar hook blade and the specime n pulled out through the vagina. 0 Vicryl sutures were placed as the angles one on each side and then 2-0 V-Loc was used to close the fascial incision in 2 layers. Vaginal epithelium connective tissue taken on the first lay er. Then, the on the second layer. No evidence of any trauma to the bladder or the urete rs. After the surgery was completed, trocars were removed. The ovaries were intact. No problems. Gas was desufflated. After the patient was recovered from anesthesia, Barrow was removed as well as t he occluder sponge. Then, the case was ended. EBL was minimal. She will follow up in 1 week. DORIS/LALA Voice ID: [id number] Report ID: [id number]
== END 2021-10-10 13:50 | disposition home or self-care (01) ==
LOC: OR 06:36
PROVIDERS: ATTEND Obstetrics & Gynecology
PROC: 0UT74ZZ Resection of Bilateral Fallopian Tubes, Percutaneous Endoscopic Approach (ICD-10-PCS; 2021-10-10)
PROC: 0UT94ZZ Resection of Uterus, Percutaneous Endoscopic Approach (ICD-10-PCS; principal; 2021-10-10 07:30)
DX: N94.12 Deep dyspareunia (principal); N94.6 Dysmenorrhea, unspecified; R10.2 Pelvic and perineal pain; F33.0 Major depressive disorder, recurrent, mild; R00.0 Tachycardia, unspecified; N80.2 Endometriosis of fallopian tube; Z20.822 Contact with and (suspected) exposure to COVID-19
CPT/HCPCS: 85025; 36415 ×2; 86900; 86850; 84703; 86901; 88307; 81003; 58571; U0003; J2704; J2250; J3010; J1100; J1170 ×3; J0690 ×2; J7120 ×2; J7030; J2405 ×2; J2370

== ENCOUNTER 2021-10-17 12:35 | Emergency (ER) | payer OTHER ==
--- OUTSIDE RECORDS SUMMARY | 2021-10-17 12:39 | XMS REPORT | Continuity of Care Document ---
:1980 Author Organization [facility] t Address [address] [place] [address] Care Team Providers Name Role Phone Nigel GALLARDO Primary Care Physician Tomeka Attending Clinician Unavailable Julianna BRONSON Attending Clinician Doctor Unassigned, Name Attending Clinician Unavailable Payers Payer Name Policy Type Policy Number Effective Date Expiration Date S ource Problems Condition Condition Condition Status Onset Resolution Last Treating Co mments Source Name Details Category Date Date Treatment Clinician Date No known No known Disease Unive rs active active ity of problems problems [facility] Allergies, Adverse Reactions, Alerts This patient has no known allergies or adverse reactions. Social History Social Habit Start Date Stop Date Quantity Comments Source Exposure to Not sure [facility] SARS-CoV-2 (event) [facility] History of tobacco Cigarette Smoker University of use [facility] Cigarettes smoked 2018-10-11 2018-10-11 Univers ity of current (pack per 00:00:00 00:00:00 [place] ) - Reported Branch Cigarette 2018-10-11 2018-10-11 University of pack-years 00:00:00 00:00:00 [facility] Tobacco use and 2018-10-11 2018-10-11 Never used Universit y of exposure 00:00:00 00:00:00 [facility] Sex Ass[birth year] At [birth year] Universit y of 00:00:00 00:00:00 [facility] Smoking Status Start Date Stop Date Source Current every day smoker 2018-10-11 00:00:00 [facility] Medications Ordered Filled Start Stop Current Ordering Indication Dosage Frequency Signature Comments Components Source Medication Medication Date Date Medication? Clinician (SIG) Name Name predniSONE 2020-07- No [id number] 40mg Take 2 Univers 20 mg 2-13 12-19 tablets by ity of tablet 00:00: 05:59 mouth [place] 00 :00 daily for Medical 5 days. Branch fluticasone 2020-07 Yes 2{puff} Inhale 2 Univers -salmeterol 2-09 Puffs 2 ity o f 230-21 11:49: (two) [place] mcg/actuati 36 times Medical on inhaler daily. Branch fluticasone 2020-07 Yes 2{puff} Inhale 2 Univers -salmeterol 2-09 Puffs 2 ity o f 230-21 11:49: (two) [place] mcg/actuati 36 times Medical on inhaler daily. [place] fluticasone 2020-07 Yes 2{puff} Inhale 2 Univers -salmeterol 2-09 Puffs 2 ity o f 230-21 11:49: (two) [place] mcg/actuati 36 times Medical on inhaler daily. [place] albuterol Yes [id number] 2{puff} Inhale 2 Univers (PROAIR 9-16 Puffs ity of HFA) 90 00:00: every 6 [place] mcg/actuati 00 (six) Medical on inhaler hours as Branc h needed for Wheezing or Shortness of Breath. predniSONE Yes [id number] 40mg Take 2 Univers 20 mg 9-16 [id number] tablets by ity o f tablet 00:00: mouth [place] 00 daily. Medical Branch albuterol Yes [id number] 2{puff} Inhale 2 Univers (PROAIR 9-16 Puffs ity of HFA) 90 00:00: every 6 [place] mcg/actuati 00 (six) Medical on inhaler hours as Branc h needed for Wheezing or Shortness of Breath. predniSONE Yes [id number] 40mg Take 2 Univers 20 mg 9-16 [id number] tablets by ity o f tablet 00:00: mouth [place] 00 daily. Medical Branch albuterol Yes [id number] 2{puff} Inhale 2 Univers (PROAIR 9-16 Puffs ity of HFA) 90 00:00: every 6 [place] mcg/actuati 00 (six) Medical on inhaler hours as Branc h needed for Wheezing or Shortness of Breath. predniSONE Yes [id number] 40mg Take 2 Univers 20 mg 9-16 [id number] tablets by ity o f tablet 00:00: mouth [place] [address] daily. Medical Branch MONTELUKAST 2019-0 Yes [id number] TAKE 1 Univers 10 mg 9-28 TABLET AT ity of tablet 00:00: BEDTIME [place] [facility] MONTELUKAST 2019-0 Yes [id number] TAKE 1 Univers 10 mg 9-28 TABLET AT ity of tablet 00:00: BEDTIME [place] [facility] MONTELUKAST 2019-0 Yes [id number] TAKE 1 Univers 10 mg 9-28 TABLET AT ity of tablet 00:00: BEDTIME [place] [address] Medical Branch levalbutero 2018-07 Yes [id number] 1.25mg Inhale Univers l 1.25 mg/3 1-15 1.25 mg 3 ity of mL 00:00: (three) [place] nebulizer 00 times Medical solution daily as Branch needed for Wheezing or Shortness of Breath. levalbutero 2018-07 Yes [id number] 1.25mg Inhale Univers l 1.25 mg/3 1-15 1.25 mg 3 ity of mL 00:00: (three) [place] nebulizer 00 times Medical solution daily as Branch needed for Wheezing or Shortness of Breath. levalbutero 2018-07 Yes [id number] 1.25mg Inhale Univers l 1.25 mg/3 1-15 1.25 mg 3 ity of mL 00:00: (three) [place] nebulizer 00 times Medical solution daily as Branch needed for Wheezing or Shortness of Breath. dupilumab 2019-0 Yes Day 15 and Un isaías 200 mg/1.14 5-30 on inject ity of mL Syrg 00:00: 200 mg [place] syringe 00 under skin Medica l every 2 Branch weeks. dupilumab 2019-0 Yes Day 15 and Un isaías 200 mg/1.14 5-30 on inject ity of mL Syrg 00:00: 200 mg [place] syringe 00 under skin Medica l every 2 Branch weeks. dupilumab 2019-0 Yes Day 15 and Un isaías 200 mg/1.14 5-30 on inject ity of mL Syrg 00:00: 200 mg [place] syringe 00 under skin Medica l every 2 Branch weeks. tiotropium Yes [id number] 1{puff} Inhale 1 Univers bromide 5-03 Puff ity of (SPIRIVA 00:00: daily. [place] RESPIMAT) 00 Medical 2.5 Branch mcg/actuati on Mist tiotropium Yes [id number] 1{puff} Inhale 1 Univers bromide 5-03 Puff ity of (SPIRIVA 00:00: daily. [place] RESPIMAT) 00 Medical 2.5 Branch mcg/actuati on Mist tiotropium Yes [id number] 1{puff} Inhale 1 Univers bromide 5-03 Puff ity of (SPIRIVA 00:00: daily. [place] RESPIMAT) 00 Medical 2.5 Branch mcg/actuati on Mist zolpidem 10 Yes TK 1 T PO U nivers mg tablet 3-29 QD HS. ity of 00:00: [place] [facility] zolpidem 10 Yes TK 1 T PO U nivers mg tablet 3-29 QD HS. ity of 00:00: [place] [facility] zolpidem 10 Yes TK 1 T PO U nivers mg tablet 3-29 QD HS. ity of 00:00: [place] [facility] Prednisone Prednisone Yes Toney [address] [facility] MiraLax MiraLax Yes Toney not [facility] Advair HFA Advair HFA Yes Toney [address] [facility] Diflucan Diflucan Yes Toney [address] [facility] ProAir HFA ProAir HFA Yes Toney [address] [facility] Ambien Ambien Yes Toney not [facility] Vital Signs Vital Name Observation Time Observation Value Comments Source Systolic blood 2021-06-13 17:48:00 123 mm[Hg] Univer sity of pressure [facility] Diastolic blood 2021-06-13 17:48:00 84 mm[Hg] Unive rsity of pressure [facility] Heart rate 2021-06-13 17:48:00 101 /min [facility] Respiratory rate 2021-06-13 17:48:00 20 /min Univ ersity of [facility] Body height 2021-06-13 17:48:00 162.6 cm Universi [facility] Body weight 2021-06-13 17:48:00 96.163 kg Universi [facility] BMI 2021-06-13 17:48:00 36.39 kg/m2 [facility] Oxygen saturation in 2021-06-13 17:48:00 98 /min [facility] Arterial blood by [facility] Pulse oximetry Branch Procedures Procedure Date / Time Performing Clinician Source Performed MEDICATION CORRESPONDENCE 2021-05-07 05:01:00 Doctor Unassigned, [facility] Encounters Start End Encounter Admission Attending Care Care Encounter Source Date/Time Date/Time Type Type Clinicians Facility Department ID 2021-09-24 Outpatient Tomeka, STLMLC STLMLC [id number] [facility] 14:46:00 Berna [id number] [facility] 2021-07-31 Outpatient [place], STLMLC STLMLC [id number] [facility] 12:49:26 Berna 237[address] [facility] 2019-06-07 Inpatient [facility] BENY [id number] [facility] 08:34:00 2021-09-30 2021-09-30 ambulatory STLMLC [facility]LMLC [id number] [facility] 2021-06-14 2021-06-14 Telephone VANE Levine [id number] Univers 00:00:00 00:00:00 Adam GALLO [id number] i ty ap[facility] [id number] Michi CHANEL [phone] Nd dical [facility]5 [facility] 2021-06-13 2021-06-13 Office VANE Levine [id number] Univers 12:02:06 12:32:06 Visit Adam GALLO [id number] i ty of [id number] PROF[place] [phone] Nd dical [address] 2021-05-07 2021-05-07 Orders Doctor SHEKHAR [id number] Univers 00:00:00 00:00:00 Only Unassigned, RADHA [id number] ity of [facility] [id number] Lonnie as [phone] [address] 2021-01-28 2021-01-28 Orders Doctor SHEKHAR [id number] 00:00:00 00:00:00 Only Unassigned, RADHA [id number] [facility] [id number] [phone] [facility] 2020-11-07 2020-11-07 Orders Doctor CORRIGAN [id number] 00:00:00 00:00:00 Only Unassigned, RADHA [id number] [facility] [id number] 2020-04-18 2020-04-18 Orders Doctor CORRIGAN [id number] 00:00:00 00:00:00 Only Unassigned, RADHA [id number] [facility] [phone] [facility] 2020-04-03 2020-04-03 Telephone Julianna [facility] [id number] 00:00:00 00:00:00 Drewdarrick Gallo [id number] [employer] [id number] Professio [phone] nal [address] [place] [address] 2018-09-22 2018-09-22 [facility] [id number] [address] 10:30:00 10:30:00 t [facility] 2018-08-25 2018-08-25 [facility] [id number] 11:00:00 11:00:00 [facility] 2014-01-05 2014-01-06 Outpt Diag nullFlavo [facility] [id number] [facility] 12:20:00 04:59:00 Services r Outpatient 00 l Imaging Warren Kelley Results Test Description Test Time Test Comments Results Result Sourc e Comments SCR MAMM 2019-01-04 - SCR MAMM BILATERAL BILATERAL SISSY 11:01:58 SISSY CAD CAD DIGITAL DIGITALBILATERAL FIRST EVER DIGITAL SCREENING MAMMOGRAM 3D/2D WITH CAD: 12/30/2018CLINICAL: Asymptomatic. Digital breast tomosynthesis was performed in addition to routine CC and MLO views. Current mammographic images were evaluated by either a [employer] M-Vu or a [employer] CAD (computer aided detection system). No prior [...] 11:01:58 Attending Technologist: Angelina Renner MM, [employer] [facility] [employer] Technologist: Livier Soria MM, [employer] [facility] Mammographyletter sent: Additional Imaging Mammogram BI-RADS: 0 Indeterminate
[2021-10-17] MEDS ORDERED: NA CHLORIDE 0.9% 1,000 ML ONE (13:39)
[2021-10-17] MEDS ORDERED: ONDANSETRON 4 MG/2 ML VIAL ONE (13:39)
[2021-10-17] MEDS ORDERED: HYDROMORPHONE HCL 1 MG/ML INJ ONE (13:39)
[2021-10-17] MEDS ORDERED: FAMOTIDINE 20 MG/2 ML VIAL IV ONE (13:39)
[2021-10-17 13:56] LABS: Urine Blood Negative (Negative); Urine Glucose Negative (Negative); Urine Protein 1+ (Negative); Urine Specific Gravity >=1.030 (1.005-1.030)
[2021-10-17 14:04] LABS: Absolute Lymphocytes (CBC) 2.1 K/uL (0.7-4.9); Hematocrit 37.5 % (36.0-45.0); Lymphocytes % 20.6 % (15.3-44.8); MPV 7.3 fL (7.6-11.3); RBC Red Blood Cell Count 4.28 M/uL (3.86-4.86)
[2021-10-17 14:25] LABS: ALT/SGPT 23 U/L (12-78); AST/SGOT 14 U/L (15-37); Albumin 3.5 g/dL (3.4-5.0); Alkaline Phosphatase 84 U/L (45-117); BUN Blood Urea Nitrogen 15 mg/dL (7-18); Bicarbonate 25 mmol/L (21-32); Bilirubin Total 0.3 mg/dL (0.2-1.0); Glucose Level 84 mg/dL (74-106); Lipase 124 U/L (73-393); Potassium 4.1 mmol/L (3.5-5.1); Protein, Total 7.5 g/dL (6.4-8.2); Sodium Level 138 mmol/L (136-145)
[2021-10-17 14:41] LABS: Urine Bacteria 20-50 /HPF (<20); Urine RBC <5 /HPF (NONE SEEN); Urine Urothelial Cells <5 /HPF (NONE SEEN)
[2021-10-17 14:42] LABS: Urine Mucus 2+ /HPF (NONE SEEN)
--- NOTE | 2021-10-17 15:17 | RAD REPORT ---
EXAM DESCRIPTION: CT - Abdomen Pelvis W Contrast - 10/17/2021 2:52 pm CLINICAL HISTORY: Abdominal pain/left lower quadrant pain COMPARISON: 2013 TECHNIQUE: Computed axial tomography of the abdomen pelvis was obtained. 100 cc Isovue-300 was admin istered intravenously. Oral contrast was not requested which limits evaluation of bowel. All CT scans are performed using dose optimization technique as appropriate and may include automated exposure control or mA/KV adjustment according to patient size. FINDINGS: The liver, spleen, pancreas, adrenal and kidneys appear unremarkable. There is no evidence of diverticulitis. Normal appendix. Hysterectomy. No adnexal mass. Trace amount of free fluid not considered significant. Moderate umbilical hernia contains fat A moderate amount of stool within the colon IMPRESSION: A moderate amount of stool within the colon
[2021-10-17] MEDS ORDERED: CEFTRIAXONE 1000 MG/VIAL ONE (15:44)
--- NOTE | 2021-10-17 16:18 | EDPHYS ---
Physician Documentation [facility] – [place], [place] Name: Marija Rojas Age: 41 yrs Sex: Female : 1980 Arrival Date: 10/17/2021 Time: 12:36 Bed 18 Private MD: Abraham Hightower HPI: 10/17 13:35 This 41 yrs old Female presents to ER via Wheelchair with complaints of Post cp Surgical Pain, Dizziness. 13:35 The patient presents with abdominal pain in the left lower quadrant. cp 13:35 Onset: The symptoms/episode began/occurred gradually, and became worse today. The cp symptoms do not radiate. Associated signs and symptoms: Pertinent positives: nausea and vomiting, anorexia, constipation, vaginal bleeding, Pertinent negatives: diarrhea, dysuria, fever, headache, shortness of breath. Patient reports having total hysterectomy performed by DR Mcfadden on 10-10-2021. Continues to have some mild vaginal bleeding. Increasing abdominal pain today. 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 Flu vaccine status is unknown. - Social history:: Smoking status: Patient denies any tobacco usage or history of. ROS: 13:40 Constitutional: Positive for poor PO intake, Negative for body aches, chills, fever. cp 13:40 Eyes: Negative for injury, pain, redness, and discharge. cp 13:40 ENT: Negative for drainage from ear(s), ear pain, sore throat, difficulty swallowing, difficulty handling secretions. 13:40 Cardiovascular: Negative for chest pain, edema, palpitations. 13:40 Respiratory: Negative for cough, shortness of breath, wheezing. 13:40 Abdomen/GI: Positive for abdominal pain, nausea and vomiting, constipation, anorexia, Negative for diarrhea, black/tarry stool, rectal bleeding. 13:40 : Positive for vaginal bleeding. 13:40 Neuro: Negative for altered mental status, headache, weakness. 13:40 All other systems are negative. Exam: 13:45 Constitutional: The patient appears in no acute distress, alert, awake, cp non-diaphoretic, non-toxic, well developed, well nourished, obese. 13:45 Head/Face: Normocephalic, atraumatic. cp 13:45 Eyes: Periorbital structures: appear normal, Conjunctiva: normal, no exudate, no injection, Sclera: no appreciated abnormality, Lids and lashes: appear normal, bilaterally. 13:45 ENT: External ear(s): are unremarkable, Nose: is normal, Mouth: Lips: moist, Oral mucosa: moist, Posterior pharynx: Airway: no evidence of obstruction, patent. 13:45 Neck: ROM/movement: is normal, is supple, without pain, no range of motions limitations. 13:45 Chest/axilla: Inspection: normal, Palpation: is normal, no crepitus, no tenderness. 13:45 Cardiovascular: Rate: normal, Rhythm: regular. 13:45 Respiratory: the patient does not display signs of respiratory distress, Respirations: normal, no use of accessory muscles, no retractions, labored breathing, is not present, Breath sounds: are clear throughout, no decreased breath sounds, no stridor, no wheezing. 13:45 Abdomen/GI: Inspection: abdomen appears normal, Bowel sounds: active, all quadrants, Palpation: soft, in all quadrants, severe abdominal tenderness, in the left lower quadrant, voluntary guarding, is elicited in the left lower quadrant. 13:45 Back: CVA tenderness, is absent. 13:45 Skin: cellulitis, is not appreciated, no rash present. 13:45 Neuro: Orientation: to person, place \T\ time. Mentation: is normal, Motor: moves all fours, strength is normal, Sensation: is normal. Vital Signs: 13:07 BP 129 / 93; Pulse 87; Resp 18; Temp 98.0; Pulse Ox 97% ; Weight 99.79 kg; Height 5 ft. ll1 4 in. (162.56 cm); Pain 7/10; 16:00 BP 107 / 70; Pulse 80; Resp 17; Pulse Ox 96% on R/A; chung 13:07 Body Mass Index 37.76 (99.79 kg, 162.56 cm) ll1 MDM: 13:22 Patient medically screened. vinod 14:00 Differential diagnosis: bowel obstruction, cholecystitis, Cholelithiasis, cp diverticulitis, gastritis, non-specific abd pain, pancreatitis, Pyelonephritis, Ureterolithiasis, urinary tract infection. 16:16 Data reviewed: vital signs, nurses notes, lab test result(s), radiologic studies, CT cp scan. 16:16 Counseling: I had a detailed discussion with the patient and/or guardian regarding: the cp historical points, exam findings, and any diagnostic results supporting the discharge/admit diagnosis, lab results, radiology results, to return to the emergency department if symptoms worsen or persist or if there are any questions or concerns that arise at home. Response to treatment: the patient's symptoms have markedly improved after treatment, and as a result, I will discharge patient. 16:16 ED course: VSS. Pain markedly improved. CT abdomen/pelvis reviewed and negative for cp emergent findings. Will discharge to home for continued monitoring. 10/17 13:29 Order name: CBC with Diff; Complete Time: 15:24 cp 10/17 15:24 Interpretation: Normal except: PLT 480; MPV 7.3. cp 10/17 13:29 Order name: CMP; Complete Time: 15:24 cp 10/17 15:25 Interpretation: Normal except: CL 109; AST 14; A/G 0.9; GLOB 4.0. cp 10/17 13:29 Order name: Lipase; Complete Time: 15:24 cp 10/17 13:29 Order name: Urine Microscopic Only; Complete Time: 15:24 cp 10/17 15:25 Interpretation: Normal except: UBACT 20-50. cp 10/17 13:29 Order name: PT-INR; Complete Time: 15:24 cp 10/17 13:29 Order name: Ptt, Activated; Complete Time: 15:24 cp 10/17 13:29 Order name: CT Abd/Pelvis - IV Contrast Only; Complete Time: 15:24 cp 10/17 13:56 Order name: Urine Dipstick-Ancillary; Complete Time: 15:24 EDMS 10/17 13:57 Order name: Urine --Ancillary (enter results); Complete Time: 16:02 eb 10/17 14:45 Order name: Urine Culture EDTN 10/17 13:29 Order name: IV Saline Lock; Complete Time: 13:58 cp 10/17 13:29 Order name: Labs collected and sent; Complete Time: 13:58 cp 10/17 13:29 Order name: Urine Dipstick-Ancillary (obtain specimen); Complete Time: :58 cp 10/17 15:26 Order name: PO challenge; Complete Time: 15:44 cp Administered Medications: 13:55 Drug: NS 0.9% 1000 ml Route: IV; Rate: 1 bolus; Site: right antecubital; chung 13:57 Follow up: IV Status: Completed infusion chung 13:55 Drug: Dilaudid (HYDROmorphone) 1 mg Route: IVP; Site: right antecubital; chung 13:56 Follow up: Response: No adverse reaction chung 13:56 Drug: Pepcid (famotidine) 20 mg Route: IVP; Site: right antecubital; chung 13:56 Follow up: Response: No adverse reaction chung 13:56 Drug: Zofran (Ondansetron) 4 mg Route: IVP; Site: right antecubital; chung 13:57 Follow up: Response: No adverse reaction chung 15:44 Drug: Rocephin - (cefTRIAXone) 1 grams Route: IVPB; Infused Over: 30 mins; Site: right chung antecubital; 16:48 Not Given (Physician Discretion): Hydrocodone-Acetaminophen (10 mg-500 mg) 1 tabs PO chung once; RASS on ADMIN: Combtv4, Very Agttd3, Agttd2, Rstlss1, AlertClm0, Drwsy-1, Lt Sdtn-2, Mod Sdtn-3, Dp Sdtn-4, UnArsble-5 16:48 Drug: [place] (HYDROcodone-acetaminophen) 10 mg-325 mg 1 tabs Route: PO; chung 16:48 Follow up: Response: No adverse reaction chung Disposition: 19:00 Co-signature as Attending Physician, Abraham Moe MD I agree with the assessment and vinod plan of care. Disposition Summary: 10/17/21 16:17 Discharge Ordered Location: Home cp Problem: new cp Symptoms: have improved cp Condition: Stable cp Diagnosis - Constipation, unspecified cp - Lower abdominal pain, unspecified cp - Nausea cp - UTI/ Urinary tract infection, site not specified cp Followup: cp - With: Arabella Mcfadden MD - When: 1 - 2 days - Reason: Worsening of condition Discharge Instructions: - Discharge Summary Sheet cp - Constipation, Adult cp - Nausea, Adult cp - Urinary Tract Infection, Adult cp Forms: - Medication Reconciliation Form cp - Thank You Letter cp - Antibiotic Education cp - Prescription Opioid Use cp Prescriptions: - Augmentin 875-125 mg Oral Tablet - take 1 tablet by ORAL route every 12 hours for 7 days; 14 tablet; Refills: 0, cp Product Selection Permitted - ondansetron 8 mg Oral tablet,disintegrating - take 1 tablet by ORAL route every 12 hours As needed; 20 tablet; Refills: 0, cp Product Selection Permitted - Colace 100 mg Oral Tablet - take 1 tablet by ORAL route every 12 hours; 14 tablet; Refills: 0, Product cp Selection Permitted - Tylenol-Codeine #3 300 mg-30 mg Oral - take 2 tablet by ORAL route every 8-10 hours; 15 tablet; Refills: 0, Product cp Selection Permitted Signatures: Dispatcher [employer] Abraham Kelley MD MD cha Page, Corey, PA PA cp Lewis, Lynsay, RN RN ll1 Herminia Medina RN RN chung
--- NOTE | 2021-10-17 16:18 | ER ---
Nurse's Notes [facility] Name: Marija Rojas Age: 41 yrs Sex: Female : 1980 Arrival Date: 10/17/2021 Time: 12:36 Bed 18 Private MD: Diagnosis: Constipation, unspecified;Lower abdominal pain, unspecified;Nausea;UTI/ Urinary tract infection, site not specified Presentation: 10/17 13:07 Chief complaint: Patient states: Had hysterectomy 10/10/[address] Mcfadden. N/V, unable ll1 to hold down foods since surgery. No fever. Coronavirus screen: Client denies travel out of the [place] in the last 14 days. At this time, the client does not indicate any symptoms associated with coronavirus-19. Ebola Screen: Patient denies travel to an Ebola-affected area in the 21 days before illness onset. Initial Sepsis Screen: Does the patient meet any 2 criteria? No. Patient's initial sepsis screen is negative. Does the patient have a suspected source of infection? Yes: Acute abdominal pain. Risk Assessment: Do you want to hurt yourself or someone else? Patient reports no desire to harm self or others. Onset of symptoms was October 10, 2021. 13:07 Method Of Arrival: Wheelchair ll1 13:07 Acuity: MARTIN 3 ll1 Triage Assessment: 13:23 General: Appears in no apparent distress. Behavior is calm, cooperative. 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 Flu vaccine status is unknown. - Social history:: Smoking status: Patient denies any tobacco usage or history of. Screenin:22 Abuse screen: Denies threats or abuse. Denies injuries from another. Nutritional chung screening: No deficits noted. Tuberculosis screening: No symptoms or risk factors identified. Fall Risk None identified. Assessment: 13:22 Pain: Complains of pain in abdomen. GI: Reports nausea, Pain is 8 out of 10 on a pain chung scale. vomiting. Vital Signs: 13:07 BP 129 / 93; Pulse 87; Resp 18; Temp 98.0; Pulse Ox 97% ; Weight 99.79 kg; Height 5 ft. ll1 4 in. (162.56 cm); Pain 7/10; 16:00 BP 107 / 70; Pulse 80; Resp 17; Pulse Ox 96% on R/A; chung 13:07 Body Mass Index 37.76 (99.79 kg, 162.56 cm) ll1 ED Course: 12:36 Patient arrived in ED. ds1 13:08 Triage completed. ll1 13:09 Arm band placed on. ll1 13:14 Abraham Mak PA is PHCP. cp 13:14 Abraham Moe MD is Attending Physician. cp 13:15 Herminia Medina, PRIYA is Primary Nurse. chung 13:22 Allergy band placed. Bed in low position. chung 13:22 No provider procedures requiring assistance completed. chung 13:58 CT Abd/Pelvis - IV Contrast Only Sent. chung 14:54 CT Abd/Pelvis - IV Contrast Only In Process Unspecified. EDMS 16:16 Arabella Mcfadden MD is Referral Physician. cp 17:43 IV discontinued, intact, Pressure dressing applied. chung Administered Medications: 13:55 Drug: NS 0.9% 1000 ml Route: IV; Rate: 1 bolus; Site: right antecubital; chung 13:57 Follow up: IV Status: Completed infusion chung 13:55 Drug: Dilaudid (HYDROmorphone) 1 mg Route: IVP; Site: right antecubital; chung 13:56 Follow up: Response: No adverse reaction chung 13:56 Drug: Pepcid (famotidine) 20 mg Route: IVP; Site: right antecubital; chung 13:56 Follow up: Response: No adverse reaction chung 13:56 Drug: Zofran (Ondansetron) 4 mg Route: IVP; Site: right antecubital; chung 13:57 Follow up: Response: No adverse reaction chung 15:44 Drug: Rocephin - (cefTRIAXone) 1 grams Route: IVPB; Infused Over: 30 mins; Site: right chung antecubital; 16:48 Not Given (Physician Discretion): Hydrocodone-Acetaminophen (10 mg-500 mg) 1 tabs PO chung once; RASS on ADMIN: Combtv4, Very Agttd3, Agttd2, Rstlss1, AlertClm0, Drwsy-1, Lt Sdtn-2, Mod Sdtn-3, Dp Sdtn-4, UnArsble-5 16:48 Drug: [place] (HYDROcodone-acetaminophen) 10 mg-325 mg 1 tabs Route: PO; chung 16:48 Follow up: Response: No adverse reaction chung Outcome: 16:17 Discharge ordered by . gautam 17:43 Discharged to home with family. chung 17:43 Condition: good 17:43 Discharge instructions given to patient, family, Prescriptions given X 4. 17:43 Patient left the ED. chung Signatures: Dispatcher [employer] MALIHANC Tracey Silveira dsAbraham Faye PA PA cp Lewis, Lynsay, RN RN ll1 Herminia Medina RN RN chung
[2021-10-17] MEDS ORDERED: HYDROCODONE/APAP 10/325 TAB ONE (16:32)
[2021-10-17 21:46] VITALS: TEMP 98
[2021-10-17 21:47] VITALS: BP 107/70; O2SAT 96
== END 2021-10-17 17:43 | disposition home or self-care (01) ==
LOC: ER 12:35
DX: N39.0 Urinary tract infection, site not specified (principal); K59.00 Constipation, unspecified; R11.0 Nausea; Z90.710 Acquired absence of both cervix and uterus; J45.909 Unspecified asthma, uncomplicated; Z91.048 Other nonmedicinal substance allergy status
CPT/HCPCS: 87088; 85025; 87086; 36415; 81025; 85610; 85730; 83690; 80053; 74177; 96375; 96374; 99283; Q9967; J1170; J7030; J2405; 81003; 81015

== ENCOUNTER 2021-12-06 09:50 | Day surgery (SDC) | payer OTHER ==
[2021-12-06] MEDS ORDERED: Ringers Lactate 1,000 ML IV ONE ×2 (10:25→16:03)
[2021-12-06] MEDS: CEFAZOLIN 2 GM IN 0.9% NACL 2 GM/100 ML BAG ONE ×2 (12:09→14:47)
[2021-12-06] MEDS ORDERED: propofoL 200 MG/20 ML VIAL IV ONE (13:39)
[2021-12-06] MEDS ORDERED: LIDOCAINE 2% MPF 5 ML VIAL ONE (13:41)
[2021-12-06] MEDS ORDERED: ROCURONIUM 50 MG/5 ML VIAL IV ONE (13:41)
[2021-12-06] MEDS ORDERED: GLYCOPYRROLATE 0.2 MG/ML SYR ONE (13:42)
[2021-12-06] MEDS ORDERED: MIDAZOLAM HCL 2 MG/2 ML INJ ONE (13:42)
[2021-12-06] MEDS ORDERED: ONDANSETRON 4 MG/2 ML VIAL ONE ×3 (13:44→18:24)
[2021-12-06] MEDS ORDERED: NEOSTIGMINE 1 MG/ML -10 ML VIAL ONE (13:44)
[2021-12-06] MEDS ORDERED: FENTANYL CITR 100 MCG/2 ML ONE ×2 (13:46→15:24)
[2021-12-06] MEDS ORDERED: BUPIVACAINE 0.25% PF 10 ML VIAL ONE (13:48)
[2021-12-06] MEDS ORDERED: dexAMETHasone 10 MG/ML VIAL ONE (14:40)
--- NOTE | 2021-12-06 15:30 | P.OP ---
Preoperative diagnosis: Incisional Umbilical Ventral Hernia Postoperative diagnosis: Incisional Umbilical Ventral Hernia Primary procedure: Laparoscopic ventral umbilical hernia repair with mesh Anesthesia: GETA Estimated blood loss: <5cc Specimen: hernia contents Findings: umbilical hernia Complications: None Implants: Bard Ventralite ST mesh with echo 11.4cm, sorbafix x 2 Transferred to: Recovery Room Condition: Good
[2021-12-06] MEDS: HYDROMORPHONE HCL 1 MG/ML INJ ONE ×6 (15:50→16:19)
[2021-12-06] MEDS ORDERED: KETOROLAC 30 MG/ML INJ ONE (16:04)
[2021-12-06] MEDS: MEPERIDINE HCL 25 MG/ML SYR ONE ×2 (16:30→16:36)
[2021-12-06] MEDS: MIDAZOLAM HCL 2 MG/2 ML INJ ONE ×2 (16:46→17:06)
[2021-12-06 17:44] VITALS: TEMP 97.6; O2SAT 98
[2021-12-06] MEDS ORDERED: HYDROCODONE/APAP 7.5/325 MG TAB ONE (18:24)
[2021-12-06 19:05] VITALS: BP 110/72
--- NOTE | 2021-12-07 02:21 | OP ---
Date of Procedure: 12/06/2021 Surgeon: Phill Morris MD, Preoperative Diagnosis: Incisional umbilical ventral hernia. Postoperative Diagnosis: Incisional umbilical ventral hernia. Procedure Performed: Laparoscopic ventral hernia repair with mesh. Anesthesia: General endotracheal. Estimated Blood Loss: Less than 5 cc. Specimen: Hernia contents. Findings: Umbilical hernia with approximately 2 cm defect. Complications: None. Implants: Bard Ventralight ST mesh with Echo Positioning System 11.4 cm round and SorbaFix absorbabl e fixation tacks x2 devices. Disposition: The patient was transferred to recovery room in good condition. Procedure In Detail: After informed was obtained, the patient was brought to the operating room, and prepped and draped in the usual sterile fashion. After adequate anesthesia was achieved, the area o f the left upper quadrant was anesthetized with 0.25% Marcaine, sharply incised, and a 5 mm 0-degree optical trocar was introduced in the abdomen without complication. Insufflation was obtained to 15 m mHg at this time. There was no injury to vital structures upon entry into the abdomen. At this poin t, preperitoneal fat was noted to be incarcerated into an umbilical ventral incisional hernia. At th is point, a 12 mm trocar was placed under direct visualization without any complication. The LigaSur e device was used to take the preperitoneal fat down and to mobilize it from the hernia defect. Afte r the hernia was cleaned off all contents, the hernia contents were placed in an EndoCatch bag, remov ed from the 12 mm trocar, and sent off for pathologic examination. The edges of the defect were then assessed for viability, which appeared to be good at this point. I then proceeded to close the samantha ia defect with a V-Loc suture in a running fashion with good apposition of the tissues, imbricating t he hernia sac throughout while running the stitch. At this point, the Bard Ventralight ST mesh with Echo Positioning System 11.4 cm round mesh was brought into the trocar, positioned neutrally over the central portion of the hernia defect and deployed at this point. The SorbaFix absorbable fixation t acks were then used to secure the mesh to the anterior abdominal wall. The balloon deployment system was removed, found to be intact on the back table. The remaining SorbaFix absorbable fixation tacks were used to secure the mesh to the anterior abdominal wall with a double crown method using approxi mately 50 tacks with good apposition of the mesh to the anterior abdominal wall. The patient was pos itioned slightly rotated away. At this point, I then closed the 12 mm trocar site with a Kinsey wells suture passer with 0 Vicryl in interrupted fashion with good approximation of the tissues. The abdomen was completely desufflated under direct visualization without complication and remaining troc ars were removed. All skin incisions were copiously irrigated and closed with a 4-0 Monocryl fashion and Dermabond placed over top. The patient tolerated the procedure well without any complication an d transferred to PACU in good condition. All counts were correct at the end of the case. JONATHAN/LALA Voice ID: [id number] Report ID: [id number]
== END 2021-12-06 19:00 | disposition home or self-care (01) ==
LOC: OR 09:50
PROVIDERS: ATTEND Surgery
PROC: 0WUF4JZ Supplement Abdominal Wall with Synthetic Substitute, Percutaneous Endoscopic Approach (ICD-10-PCS; principal; 2021-12-06 13:45)
DX: K43.2 Incisional hernia without obstruction or gangrene (principal); Z20.822 Contact with and (suspected) exposure to COVID-19
CPT/HCPCS: 88302; 49655; U0003; J2704; J2710; J2250 ×2; J3010 ×2; J1100; J2175; J1170 ×3; J0690; J7120 ×2; J2405 ×3; C1781

== ENCOUNTER 2022-02-28 22:42 | Emergency (ER) | payer OTHER ==
--- OUTSIDE RECORDS SUMMARY | 2022-02-28 22:46 | XMS REPORT | Continuity of Care Document ---
:1980 Author Organization [facility] t Address [address] [place] [address] Care Team Providers Name Role Phone Tabatha Muñoz Primary Care Physician Berna Eckert Attending Clinician Unavailable Adam Levine DO Attending Clinician Doctor Unassigned, [place] Attending Clinician Unavailable Sourav Ulrich Attending Clinician Payers Payer Name Policy Type Policy Number Effective Date Expiration Date S ource Problems Condition Condition Condition Status Onset Resolution Last Treating Co mments Source Name Details Category Date Date Treatment Clinician Date No known No known Disease Unive rs active active ity of problems problems [facility] Allergies, Adverse Reactions, Alerts This patient has no known allergies or adverse reactions. Social History Social Habit Start Date Stop Date Quantity Comments Source Exposure to Not sure University of SARS-CoV-2 (event) [facility] History of tobacco Cigarette Smoker University of use [facility] Cigarettes smoked 2018-10-11 2018-10-11 Univers ity of current (pack per 00:00:00 00:00:00 ) - Reported Branch Cigarette 2018-10-11 2018-10-11 University of pack-years 00:00:00 00:00:00 [facility] Tobacco use and 2018-10-11 2018-10-11 Never used Universit y of exposure 00:00:00 00:00:00 [facility] Sex Assigned At [birth year] Universit y of 00:00:00 00:00:00 [facility] Smoking Status Start Date Stop Date Source Current every day smoker 2018-10-11 00:00:00 [facility] versity of [facility] Medications Ordered Filled Start Stop Current Ordering Indication Dosage Frequency Signature Comments Components Source Medication Medication Date Date Medication? Clinician (SIG) Name Name predniSONE 2020-07- No [id number] 40mg Take 2 Univers 20 mg 2-13 -19 tablets by ity of tablet 00:00: 05:59 mouth [place] 00 :00 daily for Medical 5 days. [place] fluticasone 2020-07 Yes 2{puff} Inhale 2 Univers -salmeterol 2-09 Puffs 2 ity o f 230-21 11:49: (two) [place] mcg/actuati 36 times Medical on inhaler daily. [place] fluticasone 2020-07 Yes 2{puff} Inhale 2 Univers -salmeterol 2-09 Puffs 2 ity o f 230-21 11:49: (two) [place] mcg/actuati 36 times Medical on inhaler daily. [place] fluticasone 2020-07 Yes 2{puff} Inhale 2 Univers -salmeterol 2-09 Puffs 2 ity o f 230-21 11:49: (two) [place] mcg/actuati 36 times Medical on inhaler daily. [place] albuterol Yes [id number] 2{puff} Inhale 2 Univers (PROAIR 9-16 Puffs ity of HFA) 90 00:00: every 6 [place] mcg/actuati 00 (six) Medical on inhaler hours as Branc h needed for Wheezing or Shortness of Breath. predniSONE Yes [id number] 40mg Take 2 Univers 20 mg 9-16 [id number] tablets by ity o f tablet 00:00: mouth [place] 00 daily. Medical Branch albuterol Yes [id number] 2{puff} Inhale 2 Univers (PROAIR 9-16 Puffs ity of HFA) 90 00:00: every 6 [place] mcg/actuati 00 (six) Medical on inhaler hours as Branc h needed for Wheezing or Shortness of Breath. predniSONE Yes [id number] 40mg Take 2 Univers 20 mg 9-16 [id number] tablets by ity o f tablet 00:00: mouth [place] 00 daily. Medical Branch albuterol Yes [id number] 2{puff} Inhale 2 Univers (PROAIR 9-16 Puffs ity of HFA) 90 00:00: every 6 [place] mcg/actuati 00 (six) Medical on inhaler hours as Branc h needed for Wheezing or Shortness of Breath. predniSONE Yes [id number] 40mg Take 2 Univers 20 mg 9-16 [id number] tablets by ity o f tablet 00:00: mouth [place] 00 daily. Medical Branch MONTELUKAST 0 Yes [id number] TAKE 1 Univers 10 mg 9-28 TABLET AT ity of tablet 00:00: BEDTIME [place] [facility] MONTELUKAST 0 Yes [id number] TAKE 1 Univers 10 mg 9-28 TABLET AT ity of tablet 00:00: BEDTIME [place] [facility] MONTELUKAST 0 Yes [id number] TAKE 1 Univers 10 mg 9-28 TABLET AT ity of tablet 00:00: BEDTIME [place] 00 Medical Branch levalbutero 2018-07 Yes [id number] 1.25mg Inhale Univers l 1.25 mg/3 1-15 1.25 mg 3 ity of mL 00:00: (three) [place] nebulizer 00 times Medical solution daily as Branch needed for Wheezing or Shortness of Breath. levalbutero 2018-07 Yes [id number] 1.25mg Inhale Univers l 1.25 mg/3 1-15 1.25 mg 3 ity of mL 00:00: (three) [place] nebulizer 00 times Medical solution daily as Branch needed for Wheezing or Shortness of Breath. levalbutero 2018-07 Yes [id number] 1.25mg Inhale Univers l 1.25 mg/3 1-15 1.25 mg 3 ity of mL 00:00: (three) [place] nebulizer 00 times Medical solution daily as Branch needed for Wheezing or Shortness of Breath. dupilumab Yes Day 15 and Un isaías 200 mg/1.14 5-30 on inject ity of mL Syrg 00:00: 200 mg [place] syringe 00 under skin Medica l every 2 Branch weeks. dupilumab 2018-0 Yes Day 15 and Un isaías 200 mg/1.14 5-30 on inject ity of mL Syrg 00:00: 200 mg [place] syringe 00 under skin Medica l every 2 Branch weeks. dupilumab Yes Day 15 and Un isaías 200 mg/1.14 5-30 on inject ity of mL Syrg 00:00: 200 mg [place] syringe 00 under skin Medica l every 2 Branch weeks. tiotropium Yes [id number] 1{puff} Inhale 1 Univers bromide 5-03 Puff ity of (SPIRIVA 00:00: daily. [place] RESPIMAT) Medical 2.5 Branch mcg/actuati on Mist tiotropium Yes [id number] 1{puff} Inhale 1 Univers bromide 5-03 Puff ity of (SPIRIVA 00:00: daily. [place] RESPIMAT) Medical 2.5 Branch mcg/actuati on Mist tiotropium Yes [id number] 1{puff} Inhale 1 Univers bromide 5-03 Puff ity of (SPIRIVA 00:00: daily. [place] RESPIMAT) Medical 2.5 Branch mcg/actuati on Mist zolpidem 10 Yes TK 1 T PO U nivers mg tablet 3-29 QD HS. ity of 00:00: [place] [facility] zolpidem 10 Yes TK 1 T PO U nivers mg tablet 3-29 QD HS. ity of 00:00: [place] [facility] zolpidem 10 Yes TK 1 T PO U nivers mg tablet 3-29 QD HS. ity of 00:00: [place] [facility] Prednisone Prednisone Yes Toney 1 tab Common Rekhi [facility] MiraLax MiraLax Yes Toney not Comm on Rekhi defined [facility] Advair HFA Advair HFA Yes Toney 2 puffs Common Rekhi [facility] Diflucan Diflucan Yes Toney 1 tablet Common Rekhi [facility] ProAir HFA ProAir HFA Yes Toney 2 puffs as Common Rekhi needed [facility] Ambien Ambien Yes Toney not Common Rekhi defined [facility] Vital Signs Vital Name Observation Time Observation Value Comments Source Systolic blood 2021-06-13 17:48:00 123 mm[Hg] Univer sity of pressure [facility] Diastolic blood 2021-06-13 17:48:00 84 mm[Hg] Unive rsity of pressure [facility] Heart rate 2021-06-13 17:48:00 101 /min [facility] Respiratory rate 2021-06-13 17:48:00 20 /min [facility] height 2021-06-13 17:48:00 162.6 cm [facility] Body weight 2021-06-13 17:48:00 96.163 kg [facility] BMI 2021-06-13 17:48:00 36.39 kg/m2 [facility] Oxygen saturation in 2021-06-13 17:48:00 98 /min [facility] Arterial blood by [facility] Pulse oximetry Branch Procedures Procedure Date / Time Performing Clinician Source Performed MEDICATION CORRESPONDENCE 2021-05-07 05:01:00 Doctor Unassigned, [facility] [place] [facility] Encounters Start End Encounter Admission Attending Care Care Encounter Source Date/Time Date/Time Type Type Clinicians Facility Department ID 2022-02-24 [place], STLMLC STLMLC [id number] Common 15:10:00 Berna [facility] 2022-02-13 [place], STLMLC STLMLC [id number] Common 10:05:00 Berna [id number] [facility] 2021-09-24 [place], STLMLC STLMLC [id number] Common 14:46:00 Berna [facility] 2021-07-31 [place], STLMLC STLMLC [id number] Common 12:49:26 Berna [id number] [facility] 2019-06-07 Inpatient [facility] BENY 7501 [facility] 08:34:00 2022-02-24 2022-02-24 ambulatory STLMLC STLMLC [id number] Common 00:00:00 00:00:00 [facility] 2022-02-18 2022-02-18 ambulatory STLMLC STLMLC [id number] Common 00:00:00 00:00:00 [facility] 2022-02-18 2022-02-18 ambulatory STLMLC STLMLC [id number] Common 00:00:00 00:00:00 [facility] 2022-02-12 2022-02-12 ambulatory STLMLC STLMLC [id number] Common 00:00:00 00:00:00 [facility] 2021-09-30 2021-09-30 ambulatory STLMLC STLMLC [id number] Common 00:00:00 00:00:00 [facility] 2021-06-14 2021-06-14 Telephone Julianna [facility] [id number] Univers 00:00:00 00:00:00 Adam JONESKADE [id number] i ty of [place] [id number] [address] 2021-06-13 2021-06-13 Office Julianna [facility] [id number] [facility] 12:02:06 12:32:06 Visit Adam GALLO [id number] i ty [place] [phone] [address] 2021-05-07 2021-05-07 Orders Doctor SHEKHAR [id number] Univers 00:00:00 00:00:00 Only Unassigned, RADHA [id number] ity of [place] [facility] 4.2.7.2.686 Lonnie as [id number] [address] 2021-01-28 2021-01-28 Orders Doctor SHEKHAR [id number] 00:00:00 00:00:00 Only Unassigned, RADHA [id number] [place] [facility] [id number] [id number] [id number] 2020-11-07 2020-11-07 Orders Doctor SHEKHAR [id number] 00:00:00 00:00:00 Only Unassigned, RADHA [id number] [place] [facility] [id number] [id number] 2020-04-18 2020-04-18 Orders Doctor SHEKHAR [id number] 00:00:00 00:00:00 Only Unassigned, RADHA [id number] [place] [facility] [id number] [id number] [id number] 2020-04-03 2020-04-03 Telephone VANE Levine [id number] 00:00:00 00:00:00 Adam Gallo [id number] [place] [id number] Professio [phone] nal 5 [facility] 2018-09-22 2018-09-22 [facility] [id number] Common 10:30:00 10:30:00 t [facility] 2018-08-25 2018-08-25 [facility] [id number] Common 11:00:00 11:00:00 t [facility] 2014-01-05 2014-01-06 Outpt Diag nullFlavo [facility] [id number] Memoria 12:20:00 04:59:00 Services r Outpatient 00 l Imaging Warren Kelley 2014-01-05 2014-01-06 Outpt Diag nullFlavo [facility] [id number] Memoria 12:20:00 04:59:00 Services r Outpatient 00 l Imaging Warren Kelley 2014-01-05 2014-01-05 Outpatient Serg [id number] 07:20:00 23:59:00 Sourav B [id number] Results Test Description Test Time Test Comments Results Result Sour e Comments SCR MAMM 2019-01-04 - SCR MAMM BILATERAL BILATERAL SISSY 11:01:58 SISSY CAD CAD DIGITAL DIGITALBILATERAL FIRST EVER DIGITAL SCREENING MAMMOGRAM 3D/2D WITH CAD: 12/30/2018CLINICAL: Asymptomatic. Digital breast tomosynthesis was performed in addition to routine CC and MLO views. Current mammographic images were evaluated by either a [employer] M-Vu or a [employer] ImageChecker CAD (computer aided detection system). No [...] 11:01:58 Attending Technologist: Angelina Renner MM, [facility] MammographyImaging Technologist: Livier Soria MM, [facility] Mammographyletter sent: Additional Imaging Mammogram BI-RADS: 0 Indeterminate
[2022-02-28] MEDS ORDERED: ASPIRIN 81 MG CHEWABLE TABLET ONE (23:36)
[2022-02-28] MEDS ORDERED: MORPHINE 2 MG/ML SYR ONE (23:44)
[2022-02-28] MEDS ORDERED: ONDANSETRON 4 MG/2 ML VIAL ONE (23:45)
[2022-03-01 00:50] LABS: Hematocrit 36.2 % (36.0-45.0); Lymphocytes % 22.3 % (15.3-44.8); MCV 84.6 fL (80-100); MPV 7.6 fL (7.6-11.3); RBC Red Blood Cell Count 4.28 M/uL (3.86-4.86)
[2022-03-01 01:14] LABS: Potassium 4.1 mmol/L (3.5-5.1); Troponin High Sensitivity 29.8 pg/mL (<58.9)
--- NOTE | 2022-03-01 02:14 | EDPHYS ---
Physician Documentation [facility] Name: Marija Rojas Age: 42 yrs Sex: Female : 1980 Arrival Date: 02/28/2022 Time: 22:43 Bed 3 Private MD: ED Physician Jovon Ramos HPI: 02/28 23:55 This 42 yrs old Female presents to ER via Wheelchair with complaints of Chest jl9 Pain. Patiet reports getting emotionally upset today when onset started, spouse reports numerous family issues going on. . 23:55 Onset: The symptoms/episode began/occurred 3 hour(s) ago. Associated signs and jl9 symptoms: The patient has no apparent associated signs or symptoms. Modifying factors: The patient symptoms are alleviated by nothing, the patient symptoms are aggravated by nothing. The patient has not experienced similar symptoms in the past. 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 - Social history:: Smoking status: Patient denies any tobacco usage or history of. Patient/guardian denies using alcohol. ROS: 23:56 Constitutional: Negative for fever, chills, and weight loss, Eyes: Negative for injury, jl9 pain, redness, and discharge, ENT: Negative for injury, pain, and discharge, Neck: Negative for injury, pain, and swelling. 23:56 Respiratory: Negative for shortness of breath, cough, wheezing, and pleuritic chest pain, Abdomen/GI: Negative for abdominal pain, nausea, vomiting, diarrhea, and constipation, Back: Negative for injury and pain, : Negative for injury, bleeding, discharge, and swelling, MS/Extremity: Negative for injury and deformity, Skin: Negative for injury, rash, and discoloration, Neuro: Negative for headache, weakness, numbness, tingling, and seizure, Psych: Negative for depression, anxiety, suicide ideation, homicidal ideation, and hallucinations, Allergy/Immunology: Negative for hives, rash, and allergies, Endocrine: Negative for neck swelling, polydipsia, polyuria, polyphagia, and marked weight changes, Hematologic/Lymphatic: Negative for swollen nodes, abnormal bleeding, and unusual bruising. 23:56 Cardiovascular: Positive for chest pain, Negative for edema, orthopnea, palpitations. Exam: 23:56 Constitutional: This is a well developed, well nourished patient who is awake, alert, jl9 and in no acute distress. Head/Face: Normocephalic, atraumatic. Eyes: Pupils equal round and reactive to light, extra-ocular motions intact. Lids and lashes normal. Conjunctiva and sclera are non-icteric and not injected. Cornea within normal limits. Periorbital areas with no swelling, redness, or edema. ENT: Mucous membranes moist. Neck: Trachea midline, no thyromegaly or masses palpated, and no cervical lymphadenopathy. Supple, full range of motion without nuchal rigidity, or vertebral point tenderness. No Meningismus. Chest/axilla: Normal chest wall appearance and motion. Nontender with no deformity. No lesions are appreciated. Cardiovascular: Regular rate and rhythm with a normal S1 and S2. No gallops, murmurs, or rubs. Normal PMI, no JVD. No pulse deficits. Respiratory: Lungs have equal breath sounds bilaterally, clear to auscultation and percussion. No rales, rhonchi or wheezes noted. No increased work of breathing, no retractions or nasal flaring. Abdomen/GI: Soft, non-tender, with normal bowel sounds. No distension or tympany. No guarding or rebound. No evidence of tenderness throughout. Back: No spinal tenderness. No costovertebral tenderness. Full range of motion. Skin: Warm, dry with normal turgor. Normal color with no rashes, no lesions, and no evidence of cellulitis. MS/ Extremity: Pulses equal, no cyanosis. Neurovascular intact. Full, normal range of motion. Neuro: Awake and alert, GCS 15, oriented to person, place, time, and situation. Cranial nerves II-XII grossly intact. Motor strength 5/5 in all extremities. Sensory grossly intact. Cerebellar exam normal. Normal gait. Psych: Awake, alert, with orientation to person, place and time. Behavior, mood, and affect are within normal limits. Vital Signs: 22:47 BP 148 / 76; Pulse 93; Resp 20; Temp 98.0(TE); Pulse Ox 96% on R/A; Weight 104.33 kg; eh3 Height 5 ft. 4 in. (162.56 cm); Pain 8/10; 22:51 BP 148 / 76; Pulse 93; Resp 20; Temp 98.0(TE); Pulse Ox 96% on R/A; Pain 10/10; eh3 23:47 BP 131 / 71; Pulse 89; Resp 25; Pulse Ox 98% on R/A; Pain 10/10; tw5 03/01 00:42 BP 124 / 62; Pulse 81; Resp 18; Pulse Ox 99% on R/A; tw5 02:07 BP 120 / 62; Pulse 78; Resp 18; Pulse Ox 96% on R/A; tw5 02/28 22:47 Body Mass Index 39.48 (104.33 kg, 162.56 cm) [facility] MDM: 02/28 23:09 Patient medically screened. [facility] 23:24 Data reviewed: vital signs, nurses notes. Test interpretation: by ED physician or [facility] midlevel provider: ECG, NSR. 03/01 02:14 Data reviewed: radiologic studies. Counseling: I had a detailed discussion with the [facility] patient and/or guardian regarding: the historical points, exam findings, and any diagnostic results supporting the discharge/admit diagnosis, lab results, radiology results, the need for outpatient follow up, to return to the emergency department if symptoms worsen or persist or if there are any questions or concerns that arise at home. 02:14 Response to treatment: the patient's symptoms have resolved after treatment. [facility] 02/28 22:56 Order name: Basic Metabolic Panel; Complete Time: 01:16 [facility] 02/28 22:56 Order name: CBC with Diff; Complete Time: 00:52 [facility] 02/28 22:56 Order name: NT PRO-BNP; Complete Time: 01:16 [facility] 02/28 22:56 Order name: Troponin HS; Complete Time: 01:16 [facility] 02/28 23:33 Order name: Chest Single View EDTN 03/01 00:40 Order name: CT Head Brain wo Cont [facility] 02/28 22:55 Order name: EKG; Complete Time: 23:49 [facility] 02/28 22:55 Order name: Cardiac monitoring; Complete Time: 23:21 [facility] 02/28 22:55 Order name: EKG - Nurse/Tech; Complete Time: 22:55 [facility] 02/28 22:55 Order name: IV Saline Lock; Complete Time: 23:39 [facility] 02/28 22:55 Order name: Labs collected and sent; Complete Time: 23:39 [facility] 02/28 22:55 Order name: O2 Per Protocol; Complete Time: 23:21 [facility] 02/28 22:55 Order name: O2 Sat Monitoring; Complete Time: 23:21 [facility] 02/28 22:56 Order name: EKG; Complete Time: 23:49 [facility] 02/28 22:56 Order name: Cardiac monitoring; Complete Time: 23:21 [facility] 02/28 22:56 Order name: EKG - Nurse/Tech; Complete Time: 22:57 [facility] 02/28 22:56 Order name: IV Saline Lock; Complete Time: 23:39 [facility] 02/28 22:56 Order name: Labs collected and sent; Complete Time: 23:39 [facility] 02/28 22:56 Order name: O2 Per Protocol; Complete Time: 23:21 02/28 22:56 Order name: O2 Sat Monitoring; Complete Time: 23:21 jl Administered Medications: 02/28 23:30 Drug: Aspirin Chewable Tablet 324 mg Route: PO; jb4 23:52 Drug: Zofran (Ondansetron) 4 mg Route: IVP; Site: right antecubital; tw5 23:53 Drug: morphine 2 mg Route: IVP; Infused Over: 4 mins; Site: right antecubital; tw5 Disposition: 03/01 09:14 Co-signature as Attending Physician, Jovon Ramos DO I agree with the assessment and ms3 plan of care. Disposition Summary: 03/01/22 02:13 Discharge Ordered Location: Home jl9 Condition: Stable jl9 Diagnosis - Chest pain, unspecified jl9 Followup: jl9 - With: Private Physician - When: 1 - 2 days - Reason: Recheck today's complaints, Continuance of care, Re-evaluation by your physician Discharge Instructions: - Discharge Summary Sheet jl9 - Nonspecific Chest Pain, Adult, [id number] jl9 Forms: - Medication Reconciliation Form jl9 - Thank You Letter jl9 - Antibiotic Education jl9 - Prescription Opioid Use jl9 Signatures: Dispatcher [employer] EDMS Sachin Corrigan, RN RN jb4 Jovon Ramos, DO DO ms3 Vic Mccallfany tw5 Coby Rodriguez, RN RN eh3 Oneil Moraes jl9 Corrections: (The following items were deleted from the chart) 02/28 23:58 23:49 CBC+H.LAB.BRZ ordered. EDMS EDMS 23:59 23:49 BASIC METABOLIC PANEL+C.LAB.BRZ ordered. EDMS EDMS 23:59 23:49 Troponin High Sensitivity+C.LAB.BRZ ordered. EDMS EDMS 03/01 00:16 02/28 23:49 Chest Single View+RAD.RAD.BRZ ordered. EDMS EDMS 03/01 00:16 02/28 23:49 Chest Single View+RAD.RAD.BRZ ordered. EDMS EDMS 03/01 02:16 02/28 23:55 This 42 yrs old Female presents to ER via Wheelchair with jl9 complaints of Chest Pain. jl9
--- NOTE | 2022-03-01 02:14 | ER ---
Nurse's Notes [facility] Name: Marija Rojas Age: 42 yrs Sex: Female : 1980 Arrival Date: 02/28/2022 Time: 22:43 Bed 3 Private MD: Diagnosis: Chest pain, unspecified Presentation: 02/28 21:45 Chief complaint: Patient states: chest pain started within the last hour. Risk eh3 Assessment: Do you want to hurt yourself or someone else? Patient reports no desire to harm self or others. Onset of symptoms was February 28, 2022 at 20:00. 21:45 Acuity: MARTIN 3 eh3 22:45 Ebola Screen: No symptoms or risks identified at this time. eh3 22:45 Method Of Arrival: Wheelchair eh3 22:51 Coronavirus screen: Vaccine status: Patient reports being unvaccinated. Initial Sepsis eh3 Screen: Does the patient meet any 2 criteria? No. Patient's initial sepsis screen is negative. Does the patient have a suspected source of infection? No. Patient's initial sepsis screen is negative. Triage Assessment: 22:47 General: Appears distressed, uncomfortable, Behavior is crying. Pain: Complains of pain eh3 in mid-sternal area Pain radiates to right arm Pain currently is 10 out of 10 on a pain scale. Quality of pain is described as sharp, squeezing, numb, Pain began 30 min ago. Is continuous. Neuro: Level of Consciousness is awake, alert, obeys commands, Oriented to person, place, time, situation, Speech is slurred. Cardiovascular: Capillary refill < 3 seconds Patient's skin is warm and dry. Respiratory: Airway is patent Respiratory effort is even, labored. 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 - Social history:: Smoking status: Patient denies any tobacco usage or history of. Patient/guardian denies using alcohol. Screenin:47 Abuse screen: Denies threats or abuse. Denies injuries from another. Nutritional tw5 screening: No deficits noted. Tuberculosis screening: No symptoms or risk factors identified. Fall Risk IV access (20 points). Assessment: 23:40 General: Reports. tw5 23:47 General: at the bedside states " We had been out to dinner and she was fine, we tw5 got home and got ready for bed when she started to complain of chest pain.". General: Behavior is crying, fussy. Pain: Complains of pain in chest Pain currently is 10 out of 10 on a pain scale. Quality of pain is described as crushing, heavy, pressure. Neuro: Level of Consciousness is awake, alert, obeys commands, Weakness Speech is slurred. Cardiovascular: Heart tones S1 S2 present Capillary refill < 3 seconds. Respiratory: Airway is patent Trachea midline Respiratory pattern is tachypnea. 03/01 00:42 Neuro: Speech is slurred. tw5 02:07 Pain: Pain currently is 7 out of 10 on a pain scale. tw5 02:29 Reassessment: Patient appears in no apparent distress at this time. Patient and/or jb4 family updated on plan of care and expected duration. Pain level reassessed. Patient is alert, oriented x 3, equal unlabored respirations, skin warm/dry/pink. Patient states feeling better. Vital Signs: 02/28 22:47 BP 148 / 76; Pulse 93; Resp 20; Temp 98.0(TE); Pulse Ox 96% on R/A; Weight 104.33 kg; eh3 Height 5 ft. 4 in. (162.56 cm); Pain 8/10; 22:51 BP 148 / 76; Pulse 93; Resp 20; Temp 98.0(TE); Pulse Ox 96% on R/A; Pain 10/10; eh3 23:47 BP 131 / 71; Pulse 89; Resp 25; Pulse Ox 98% on R/A; Pain 10/10; tw5 03/01 00:42 BP 124 / 62; Pulse 81; Resp 18; Pulse Ox 99% on R/A; tw5 02:07 BP 120 / 62; Pulse 78; Resp 18; Pulse Ox 96% on R/A; tw5 02/28 22:47 Body Mass Index 39.48 (104.33 kg, 162.56 cm) 3 ED Course: 02/28 22:43 Patient arrived in ED. ja2 22:47 Triage completed. eh3 22:51 Arm band placed on left wrist. eh3 22:53 Oneil Moraes is PHCP. jl9 22:53 Jovon Ramos DO is Attending Physician. jl9 23:19 Ariela Mccall is Primary Nurse. tw5 23:47 Patient has correct armband on for positive identification. Placed in gown. Bed in low tw5 position. Call light in reach. Side rails up X 1. Client placed on continuous cardiac and pulse oximetry monitoring. NIBP monitoring applied. Door closed. Noise minimized. Moved to private room. Warm blanket given. Verbal reassurance given. 23:47 Initial lab(s) drawn, by ED staff, sent to lab. EKG done, by mineral technologist. reviewed by Oneil Moraes. Inserted saline lock: 18 gauge in right antecubital area, using aseptic technique. Blood collected. Oxygen administration via nasal cannula \\T\\ 2L/min. 23:53 Basic Metabolic Panel Sent. tw5 23:53 CBC with Diff Sent. tw5 23:53 NT PRO-BNP Sent. tw5 23:53 Troponin HS Sent. tw5 03/01 00:16 Chest Single View In Process Unspecified. EDMS 01:21 CT Head Brain wo Cont In Process Unspecified. EDMS 02:29 No provider procedures requiring assistance completed. IV discontinued, intact, jb4 bleeding controlled, No redness/swelling at site. Pressure dressing applied. Administered Medications: 02/28 23:30 Drug: Aspirin Chewable Tablet 324 mg Route: PO; jb4 23:52 Drug: Zofran (Ondansetron) 4 mg Route: IVP; Site: right antecubital; tw5 23:53 Drug: morphine 2 mg Route: IVP; Infused Over: 4 mins; Site: right antecubital; tw5 Medication: 03/01 00:42 VIS not applicable for this client. tw5 Outcome: 02:13 Discharge ordered by . jl9 02:29 Discharged to home via wheelchair, with family. jb4 02:29 Condition: stable 02:29 Discharge instructions given to patient, Instructed on discharge instructions, follow up and referral plans. Demonstrated understanding of instructions, follow-up care. 02:31 Patient left the ED. jb4 Signatures: Dispatcher [employer] EDSachin Javier, RN RN jb4 Ebony Monzon Tiffany 5 Coby Rodriguez, PRIYA RN eh3 Oneil Moraes jl9 Corrections: (The following items were deleted from the chart) 02/28 22:51 22:47 Neuro: Level of Consciousness is awake, alert, obeys commands, Oriented to 3 person, place, time, situation, [facility] 2251 22:47 Neuro: Speech is slurred, 3 3
[2022-03-01 04:34] VITALS: TEMP 98
[2022-03-01 04:43] VITALS: BP 120/62; O2SAT 96
--- NOTE | 2022-03-01 15:19 | EKG ---
Test Date: 2022-02-28 Test Time: 22:55:13 Electric[employer] Substation: MARII MEASUREMENT RESULTS: Intervals: Rate: 88 TN: 138 QRSD: 86 QT: 376 QTc: 454 Tok: P: 27 TN: 138 QRS: 28 T: 3 INTERPRETIVE STATEMENTS: Normal sinus rhythm ST & T wave abnormality, consider inferior ischemia Abnormal ECG Compared to ECG 02/28/2021 15:05:30 ST (T wave) deviation now present Possible ischemia now present T-wave abnormality no longer present Prolonged QT interval no longer present Electronically Signed On 03-01-22 15:18:07 CDT by Dominic Magaña
--- NOTE | 2022-03-01 15:59 | RAD REPORT ---
EXAM DESCRIPTION: RAD - Chest Single View - 03/01/2022 12:14 am CLINICAL HISTORY: Chest pain COMPARISON: None. FINDINGS: Single frontal radiograph view of the chest. Cardiomediastinal silhouette: Normal size and contour. Lungs: Linear bibasilar opacities. Low lung volumes. Leads overlie the chest. No pneumothorax. Bones: No acute osseous abnormality. Upper abdomen: No abnormality identified. IMPRESSION: 1. Linear bibasilar opacities likely related to subsegmental atelectasis. Low lung volum es. Electronically signed by: Joseph Simpson 03/01/2022 12:44 AM CDT Due to temporary technical issues with the PACS/Fluency reporting system, reports are being signed by the in house radiologists without review as a courtesy to insure prompt reporting. The interpreting radiologist is fully responsible for the content of the report.
--- NOTE | 2022-03-01 16:48 | RAD REPORT ---
EXAM DESCRIPTION: CT - Head Brain Wo Cont - 03/01/2022 6:19 am ADDENDUM #1 ADDENDUM: History is now provided and includes slurred speech, weakness, fatigue. If there remains strong clinical suspicion of acute ischemic infarct, then MR brain/head recommended (if there are no contraindications). Electronically signed by: Prudencio Miller MD 03/01/2022 2:09 AM CDT End of Addendum EXAM DESCRIPTION: CT Head/Brain Without Contrast CLINICAL HISTORY: No history provided COMPARISON: None. TECHNIQUE: Head/brain axial images acquired without contrast. Coronal and sagittal reformats created . Exam performed according to departmental dose-optimization program which includes automated exposur e control, adjustment of mA and/or kV according to patient size, and/or use of iterative reconstructi on technique. FINDINGS: No midline shift, mass effect, intracranial hemorrhage, or hydrocephalus. Brain parenchyma unremarkable. Partial Empty Sella (likely normal variant). Partially-imaged bilateral maxillary sinuses show mild mucosal thickening. Mastoid air cells clear. No skull fracture or significant skull lesion. IMPRESSION: Unremarkable CT head/brain without contrast. Electronically signed by: Prudencio Miller MD 03/01/2022 1:38 AM CDT Due to temporary technical issues with the PACS/Fluency reporting system, reports are being signed by the in house radiologists without review as a courtesy to insure prompt reporting. The interpreting radiologist is fully responsible for the content of the report.
== END 2022-03-01 02:31 | disposition home or self-care (01) ==
LOC: ER 22:42
DX: R07.9 Chest pain, unspecified (principal); J45.909 Unspecified asthma, uncomplicated; Z91.048 Other nonmedicinal substance allergy status
CPT/HCPCS: 93005; 85025; 80048; 36415; 84484; 83880; 70450; 71045; 96375; 96374; 99284; J2270; J2405